=== PATIENT | male | born 1930 | race Caucasian/White ===

== ENCOUNTER → 2017-09-27 | Outpatient (CLI) | payer MEDICARE ==
[~2017-09-27] MED LIST: AMLO10TA82 PO; ASPI-266 PO; ASPI81TA16 PO; CITA10TA70 PO; CITA20TA12 PO; LISI20TA PO; MULT-1029 PO; NTR.4SL SL; PRAV10TA23 PO; PRAV20TA PO; TAMS0.4C2 PO; TERA1CAP3 PO
== END ==
LOC: CARD 10:08
PROVIDERS: ATTEND Internal Medicine Cardiovascular Disease
DX: I25.10 Atherosclerotic heart disease of native coronary artery without angina pectoris (principal); I10 Essential (primary) hypertension; R00.1 Bradycardia, unspecified; R01.2 Other cardiac sounds; E78.5 Hyperlipidemia, unspecified
CPT/HCPCS: 93306

== ENCOUNTER → 2018-05-08 | Outpatient (CLI) | payer MEDICARE ==
[~2018-05-08] VITALS: Ht 172.7 cm; Wt 76.7 kg
[~2018-05-08] MED LIST changes: +CATHETER FLUSH 10 ML SYR IV PRN; +REGADENOSON 0.4 MG/5 ML SYR (LEXISCAN) IV ONE
[2018-05-08 09:45] VITALS: BP 167/89
[2018-05-08 09:48] VITALS: BP 141/79
--- NOTE | 2018-05-08 21:21 | STRESS TEST ---
DATE OF SERVICE: 05/08/2018 RESTING AND POST REGADENOSON TECHNETIUM-99M TETROFOSMIN SPECT CT IMAGING Baseline images were carried out after injection of 10.47 mCi of technetium-99m Tetrofosmin. This was followed by 0.4 mg of regadenoson and 28.8 mCi of technetium-99m Tetrofosmin for stress imaging. The electrocardiogram shows sinus rhythm with frequent premature ventricular contractions throughout the study. The electrocardiogram did not change significantly with regadenoson infusion. He tolerated the procedure well. Review of images at rest and following stress does not indicate any significant perfusion defects consistent with significant myocardial ischemia or infarction. Gated images show normal global left ventricular systolic function with normal regional wall motion. Left ventricular ejection fraction is calculated to be 44%, but appears subjectively to be higher than that. Left ventricular end diastolic volume is 98 mL. TID is absent (1.08). CONCLUSIONS: 1. No evidence of any significant myocardial ischemia or infarction on this study. 2. Normal regional wall motion. 3. Normal global left ventricular systolic function with a calculated ejection fraction of 44%, but the ejection fraction subjectively appears to be higher than that. Job ID: [id number] DocumentID: [id number] Dictated Date: 05/08/2018 18:41:06 [employer] Date: 05/08/2018 21:20:23 Dictated By: NATIVIDAD RAMIREZ MD, MA, FACP, FACC,
== END ==
LOC: CARD 07:41
PROVIDERS: ATTEND Internal Medicine Cardiovascular Disease
DX: I25.10 Atherosclerotic heart disease of native coronary artery without angina pectoris (principal); E78.5 Hyperlipidemia, unspecified; I10 Essential (primary) hypertension
CPT/HCPCS: 78452; 93017

== ENCOUNTER 2019-11-06 09:22 | Inpatient (IN) | payer MEDICARE ==
[~2019-11-06] VITALS: Ht 175 cm; Wt 74.3 kg
[~2019-11-06 09:22] MED LIST changes: +AMLO10TA7 PO; +AMOX-358 PO; +ASPI-983 PO; -CATHETER FLUSH 10 ML SYR IV PRN; +CITA10TA7 PO; +LISI-552 PO; +PRAV10TA PO; -REGADENOSON 0.4 MG/5 ML SYR (LEXISCAN) IV ONE; +TMSL.4C PO
[2019-11-06] MEDS ORDERED: LACTATED RINGERS 1,000 ML IV ONE (09:28)
[2019-11-06] MEDS ORDERED: FAMOTIDINE 20MG/2ML IV (PEPCID) IVP ONE (09:30)
[2019-11-06] MEDS ORDERED: ONDANSETRON 4 MG/2 ML (SDV) Z0FRAN IVP ONE (09:30)
--- OUTSIDE RECORDS SUMMARY | 2019-11-06 09:38 | XMS REPORT ---
Author Author [facility] Organization Man[facility] Address [address] [address] Care Team Providers Care Operations Support Representative Name Role Phone CARLEEN ARCOS Unavailable BOB ANDREW Unavailable CARLEEN ARCOS Unavailable BOB ANDREW Unavailable LUCAS DE LA CRUZ Unavailable CRISTY SO Unavailable Unavailable JUDAH, CRISTY Unavailable Unavailable JUDAH, CRISTY Unavailable Unavailable Allergies Normalized Allergy Reported Date of Reaction(s) Care Provider Facility Allergy Type classification allergen Allergy Onset DA (1 source.) Unclassified No Known Drug 07-30-2014 - no inform ation NATIVIDAD RAMIREZ , Not Available Allergies [facility] (94971) no information Unclassified NO KNOWN DRUG UNKNOWN, NO CRISTY SO Not Available (7 sources.) ALLERGIES KNOWN DRUG (62599) ALLERGIES Medications Medication Ingredient Drug Dose Dates Status Sig Sig Care Class(es) (Normalized) (Original) Provid er no Lactated no 03-09-20 no no no no information Ringer's information 17 - informat information inf ormation name (1 source.) Solution 03-09-20 ion (no 17 phone) 10-27-2016 no no no no name - information inform informat (no 11-03-2016 ation ion phone) no Normal no 10-28-19 no no no no information saline information 17 - informat information infor mation name (1 source.) 11-12-19 ion (no 17 phone) NEGATED no no 1 g 10-28-19 no no no no no information information 17 - informat information infor mation name information 10-28-19 ion (no (1 source.) 17 phone) Problems Active Problems Problem Normalized Date of Normalized Normalized Provider Fac ility Classification Problem(s) Problem Problem Problem Sta tus Onset/Resoluti Duration on Anxiety Anxiety state, Chronic Active no name no info rmation disorders (2 unspecified sources.) NEGATED 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 sources.) [place] coronary artery without angina pectoris Translations: [ CORONARY ATHEROSCLEROSI S OF [place] CORON] Other nervous Carpal tunnel Chronic Active CRISTY JUDAH Not Available system syndrome (27004) disorders (3 sources.) Other nervous Carpal tunnel Chronic Active CRISTY JUDAH Not Available system syndrome, left (02409) disorders (2 upper limb sources.) Other nervous Carpal tunnel Chronic Active CRISTY JUDAH Not Available system syndrome, (28418) disorders (1 right upper source.) limb Skin and Cellulitis and Episodic Active no name no info rmation subcutaneous abscess of tissue hand, except infections (2 fingers and sources.) thumb Diverticulosis Diverticulosis Chronic Active no name no information and of colon diverticulitis (without (2 sources.) mention of hemorrhage) Other Encounter for Episodic Active no name no infor mation aftercare (2 follow-up sources.) examination after completed treatment for conditions other than malignant neoplasm NEGATED Essential Chronic Active no name no informati on no (primary) information hypertension (10 sources.) Translations: [ HYPERTENSION NOS] NEGATED Hyperlipidemia Chronic Active no name no info rmation no , unspecified information Translations: (10 sources.) [ HYPERLIPIDEMIA NEC/NOS, OTHER HYPERLIPIDEMIA , HYPERLIPIDEMIA , UNSPECIFIED] Genitourinary Microscopic Episodic Active no name no inf ormation symptoms and hematuria ill-defined conditions (2 sources.) Other Nonspecific Episodic Active no name no informa tion gastrointestin abnormal al disorders findings in (2 sources.) stool contents Open wounds of Open wound of Episodic Active no name no information extremities (2 hand except sources.) finger(s) alone, complicated Heart valve Other cardiac Episodic Active no name no inf ormation disorders (3 sounds sources.) Immunizations Other Episodic Active no name no inform ation and screening specified for infectious vaccinations disease (2 against sources.) streptococcus pneumoniae [pneumococcus] Other ear and Presbycusis, 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 (2 sources.) NEGATED Radiculopathy, Episodic Active no name no info rmation no lumbar region information (3 Translations: sources.) [ RADICULOPATHY, CERVICAL REGION, BRACHIAL NEURITIS OR RADICULITIS NOS] Past or Other Problems Problem Normalized Date of Normalized Normalized Provider Fac ility Classification Problem(s) Problem Problem Problem Sta tus Onset/Resoluti Duration on External Dog bite no information no information no name no information Injury - Natural / Environment (2 sources.) External Other external no information no information no name no information Injury - cause status Unspecified (2 sources.) Other Other Episodic Completed CRISTY SO Not Available 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 Immunizations The data below is from unstructured sources No Known Immunizations Results Test Name Value Interpretation Reference Range Date Time Fa cility (Normalized) (Normalized) (Medline Reference) No panel information on 2017-03-01 Albumin BCG dye 4.0 (no code) 03-01-2017 Not Availa ble [Mass/Vol] 14: (02162) ALP [Catalytic 100 U/L (no code) 44 - 147 U/L 03-01-2017 Not Available activity/Vol] 14: (52098) ALT [Catalytic 16 U/L (no code) 4 - 40 U/L 03-01-2017 Not Av ailable activity/Vol] 14: (22293) Anion gap 14 mmol/L (no code) 3 - 11 mmol/L 03-01-2017 Not Avai lable [Moles/Vol] 14: (92916) AST [Catalytic 16 U/L (no code) 10 - 34 U/L 03-01-2017 Not A vailable activity/Vol] 14: (48762) Bacteria LM Ql no information (no code) 03-01-2017 Not Avai lable (Urine sed) 14: (45598) Basophils (Bld) 0.1 10*3/uL (no code) 0 - 0.3 10*3/uL 03-01-2017 Not Available [#/Vol] 14: (08383) Basophils/100 0.90 % (no code) 0.5 - 1 % 03-01-2017 Not Avai lable WBC (Bld) 14: (84392) Bilirubin 1.0 mg/dL (no code) 0.1 - 1.2 mg/dL 03-01-2017 Not Av ailable [Mass/Vol] 14: (59223) Bilirubin N/A (A) 03-01-2017 Not Available Confirm Ql (U) 14: (61591) Bilirubin Ql (U) no information (no code) 03-01-2017 Not Av ailable 14: (58279) Calcium 9.1 mg/dL (no code) 8.5 - 10.2 mg/dL 03-01-2017 Not A vailable [Mass/Vol] 14: (33699) Chloride 110 mmol/L (no code) 95 - 106 mmol/L 03-01-2017 Not A vailable [Moles/Vol] 14: (65431) Clarity (U) Clear (no code) 03-01-2017 Not Available 14: (03794) Color (U) Yellow (no code) 03-01-2017 Not Available 14: (57415) Creatinine 0.99 mg/dL (no code) 03-01-2017 Not Available [Mass/Vol] 14: (16351) Eosinophils 0.1 10*3/uL (no code) 0.05 - 0.5 03-01-2017 Not [place] ilable (Bld) [#/Vol] 10*3/uL 14: (82371) Eosinophils/100 1.4 % (no code) 1 - 4 % 03-01-2017 Not Av ailable WBC (Bld) 14: (01194) Epithelial 0-5/HPF (A) 03-01-2017 Not Available cells.squamous 14: (04065) LM.HPF (Urine sed) [#/Area] Erythrocyte 14.6 % (no code) 11.6 - 14.6 % 03-01-2017 Not Av ailable distribution 14: (97543) width (RBC) [Ratio] FINAL CULTURE no information (no code) 03-01-2017 Not Avail able RESULTS 14: (07270) GFR/1.73 sq 72 (no code) 90 - 120 03-01-2017 Not Availa ble M.predicted MDRD mL/min/{1.73_m2} mL/min/{1.73_m2} 14:0400 (80014) (S/P/Bld) [Vol rate/Area] Globulin (S) 2.8 g/dL (no code) 2 - 3.5 g/dL 03-01-2017 Not Av ailable [Mass/Vol] 14:020400 (56656) Glucose 90 mg/dL (no code) 60 - 125 mg/dL 03-01-2017 Not Mahog[place] ilable [Mass/Vol] 14:0400 (06834) Glucose Test no information (no code) 03-01-2017 Not Availa ble strip (U) 14:0400 (49686) [Mass/Vol] HCO3 (P) 24 (no code) 03-01-2017 Not Available [Moles/Vol] 14:0400 (77953) Hematocrit (Bld) 42.8 % (no code) 36.1 - 50.3 % 03-01-2017 N ot Available [Volume 14:0 (96009) fraction] Hemoglobin (Bld) 13.6 g/dL (L) 12.1 - 17.2 g/dL 03-01-2017 Not Available [Mass/Vol] 14:020400 (88485) Hemoglobin Ql 1+ (A) 03-01-2017 Not Availabl e (U) 14:0400 (31219) Ketones (U) no information (no code) 03-01-2017 Not Availab le [Mass/Vol] 14:0400 (05041) Leukocyte no information (no code) 03-01-2017 Not Availab le esterase Test 14:0400 (29881) strip Ql (U) Lymphocytes 2.24 10*3/uL (no code) 0.9 - 2.9 03-01-2017 Not [place]og[place] ilable (Bld) [#/Vol] 10*3/uL 14:020400 (85885) Lymphocytes/100 29.2 % (no code) 20 - 40 % 03-01-2017 Not Av ailable WBC (Bld) 14:020400 (01213) MCH (RBC) 27.1 pg (no code) 27 - 31 pg 03-01-2017 Not Availab le [Entitic mass] 14:0400 (28456) MCHC (RBC) 31.8 g/dL (L) 32 - 36 g/dL 03-01-2017 Not Avai lable [Mass/Vol] 14:0400 (57802) MCV (RBC) 85.4 fL (no code) 80 - 100 fL 03-01-2017 Not Availa ble [Entitic vol] 14:0400 (83398) MEDIA PLATED Setup at 13:08 (no code) 03-01-2017 Not Availa ble 03/01/2017 14:0400 (69728) Monocytes (Bld) 0.7 10*3/uL (no code) 0.3 - 0.9 03-01-2017 Not Available [#/Vol] 10*3/uL 14:0400 (73133) Monocytes/100 8.6 % (no code) 2 - 8 % 03-01-2017 Not Avai lable WBC (Bld) 14:0 (51167) Mucus Ql (Urine 2+ (A) 03-01-2017 Not Availa ble sed) 14:0400 (00856) Neutrophils 4.60 10*3/uL (no code) 1.7 - 7 10*3/uL 03-01-2017 N ot Available (Bld) [#/Vol] 14:0400 (41749) Neutrophils/100 59.9 % (no code) 40 - 60 % 03-01-2017 Not Av ailable WBC (Bld) 14:0400 (24238) Nitrite Ql (U) no information (no code) 03-01-2017 Not Avai lable 14:0400 (36084) Osmolality Calc 299 (H) 03-01-2017 Not Availa ble [Osmolality] 14:0400 (09610) pH (U) 5.5 [pH] (no code) 4.6 - 8 [pH] 03-01-2017 Not Avail able 14:020400 (51514) Platelet mean 11.1 fL (H) 7.2 - 11.7 fL 03-01-2017 Not Available volume (Bld) 14:0400 (36621) [Entitic vol] Platelets (Bld) 137 10*3/uL (L) 150 - 450 03-01-2017 Not Available [#/Vol] 10*3/uL 14:0 (78430) Potassium 4.2 mmol/L (no code) 3.7 - 5.2 mmol/L 03-01-2017 Not Available [Moles/Vol] 14:0400 (14986) Protein (U) no information (no code) 0 - 20 mg/dL 03-01-2017 No t Available [Mass/Vol] 14: (40744) Protein 6.8 g/dL (no code) 6.4 - 8.3 g/dL 03-01-2017 Not [place]og[place] ilable [Mass/Vol] 14:0 (16026) RBC (Bld) 5.01 10*6/uL (no code) 4.2 - 6.1 03-01-2017 Not Avail able [#/Vol] 10*6/uL 14: (24413) RBC LM.HPF Rare/HPF (A) 03-01-2017 Not Available (Urine sed) : (10610) [#/Area] Sodium 144 mmol/L (no code) 135 - 145 mmol/L 03-01-2017 Not Available [Moles/Vol] 14:0 (38263) Specific gravity >=1.030 (A) 03-01-2017 Not Avail able (U) [Rel 14: (82221) density] Urea nitrogen 19 mg/dL (no code) 7 - 20 mg/dL 03-01-2017 Not A vailable [Mass/Vol] :0 (55082) Urine Volume Urine Volume (no code) 03-01-2017 Not Availabl e Sufficient : (64345) (10mL) Urobilinogen Qn 0.2 (A) 03-01-2017 Not Availa ble (U) {Alondra'U}/dL 14:0 (20392) WBC (Bld) 7.68 10*3/uL (no code) 3.5 - 10.5 03-01-2017 Not Avai lable [#/Vol] 10*3/uL 14:02-0400 (15871) WBC LM.HPF Nothing Seen on (no code) 03-01-2017 Not Availa ble (Urine sed) Microscopic 14:0400 (10652) [#/Area] Yeast.budding Ql No Yeast present (no code) 03-01-2017 Not Available (Urine sed) 14:0400 (37316) no information Urine Saved if (A) 03-01-2017 Not Avai lable Culture Needed 14:0400 (67103) (48hrs from time of collection) No panel information on 2016-10-24 Bacteria LM Ql no information (no code) 10-24-2016 Not Avai lable (Urine sed) 11:0400 (06257) Bilirubin N/A (A) 10-24-2016 Not Available Confirm Ql (U) 11:0 (78569) Bilirubin Ql (U) no information (no code) 10-24-2016 Not Av ailable 11:0400 (89438) Clarity (U) Clear (no code) 10-24-2016 Not Available 11:0400 (65693) Color (U) Yellow (no code) 10-24-2016 Not Available 11:0400 (57079) Electrocardiogra Complete (no code) 10-24-2016 Not Avail able ms recorded 12: (69599) Epithelial Rare (A) 10-24-2016 Not Available cells.squamous 11:0400 (35433) LM.HPF (Urine sed) [#/Area] FINAL CULTURE no information (no code) 10-24-2016 Not Avail able RESULTS 12: (09839) Glucose Test no information (no code) 10-24-2016 Not Availa ble strip (U) 11:0400 (10635) [Mass/Vol] Hematocrit Auto 42.5 % (no code) 36.1 - 50.3 % 10-24-2016 No t Available Volume Fraction 12:25-0400 (03233) (Bld) Hemoglobin mass 13.8 g/dL (L) 12.1 - 17.2 g/dL 10-24-2016 Not Available conc (Bld) 12:0400 (49271) Hemoglobin Ql 1+ (A) 10-24-2016 Not Availabl e (U) 11:25-0400 (24027) Ketones (U) no information (no code) 10-24-2016 Not Availab le [Mass/Vol] 11:25-0400 (63737) Leukocyte no information (no code) 10-24-2016 Not Availab le esterase Test 11:25-0400 (44734) strip Ql (U) MEDIA PLATED Setup at 14:27 (no code) 10-24-2016 Not Availa ble on 10/24/2016 12:25-0400 (10782) Nitrite Ql (U) no information (no code) 10-24-2016 Not Avai lable 11:25-0400 (10992) pH (U) 5.5 [pH] (no code) 4.6 - 8 [pH] 10-24-2016 Not Avail able 11:25-0400 (30374) Protein (U) no information (no code) 0 - 20 mg/dL 10-24-2016 No t Available [Mass/Vol] 11:25-0400 (55423) RBC LM.HPF Rare/HPF (A) 10-24-2016 Not Available (Urine sed) 11:25-0400 (38891) [#/Area] Specific gravity 1.025 (no code) 10-24-2016 Not Avail able (U) [Rel 11:25-0400 (59276) density] Urine Volume Urine Volume (no code) 10-24-2016 Not Availabl e Sufficient 11:25-0400 (16371) (10mL) Urobilinogen Qn 0.2 (A) 10-24-2016 Not Availa ble (U) {Alondra'U}/dL 11:25-0400 (87531) WBC LM.HPF no information (no code) 0 - 5 /[HPF] 10-24-2016 Not Available (Urine sed) 11:25-0400 (45754) [#/Area] Yeast.budding Ql No Yeast present (no code) 10-24-2016 Not Available (Urine sed) 11:25-0400 (52724) no information Urine Saved if (A) 10-24-2016 Not Avai lable Culture Needed 11:25-0400 (56580) (48hrs from time of collection) Vital Signs The data below is from unstructured sources Vital Response Date/Time Temperature Source Tympanic 07/27/2015 6:00am Pulse Rate (adult) 63 bpm (60 - 90) 07/27/2015 6:00am Respiratory Rate 16 bpm (12 - 24) 07/27/2015 6:00am O2 Sat by Pulse Oximetry 94 % (88 - 100) 07/27/2015 6:00am Blood Pressure 105/62 mm Hg 07/27/2015 6:00am Blood Pressure Mean 76 mm Hg 07/27/2015 6:00am Pain Pain Intensity 0 2015 8:30am Height (Centimeters) 172.7 cm 07/24/2015 12:33pm Weight (Calculated Grams) 18915.000 gm 07/24/2015 12:33pm Weight (Kilograms) 77.2 kg 07/24/2015 12:33pm Height 5 ft 7.99 in Weight 170 lb Body Mass Index 25.0 kg/m^2 Vital Response Date/Time Temperature Source Tympanic 07/27/2015 10:40am Pulse Rate (adult) 63 bpm (60 - 90) 07/27/2015 10:40am Respiratory Rate 16 bpm (12 - 24) 07/27/2015 10:40am O2 Sat by Pulse Oximetry 94 % (88 - 100) 07/27/2015 10:40am Blood Pressure 105/62 mm Hg 07/27/2015 10:40am Blood Pressure Mean 76 mm Hg 07/27/2015 6:00am Pain Pain Intensity 0 2015 8:30am Height (Centimeters) 172.7 cm 07/24/2015 12:33pm Weight (Calculated Grams) 28929.000 gm 07/24/2015 12:33pm Weight (Kilograms) 77.2 kg 07/24/2015 12:33pm Height 5 ft 7.99 in Weight 170 lb Body Mass Index 25.0 kg/m^2 Vital Response Date/Time Temperature (Fahrenheit) 96.9 degree s F (97.6 - 99.5) Temperature (Calculated Celsius) 36. 01899 degrees C (36.4 - 37.5) Temperature Source Tympanic Pulse Rate (adult) 54 bpm (60 - 90) Respiratory Rate 18 bpm (12 - 24) O2 Sat by Pulse Oximetry 94 % (88 - 100) Blood Pressure 113/66 mm Hg Pain Pain Intensity 0 Height (Feet) 5 feet Height (Inches) 9.00 inches Height (Calculated Centimeters) 175. 959456 cm Weight (Pounds) 163 pounds Weight (Ounces) 3.2 oz Weight (Calculated Grams) 39801.557 gm Weight (Calculated Kilograms) 73.935 557 kilograms Calculated BMI 24.07 Interventions No Information Plan of Treatment The data below is from unstructured sources Discharge Date 07/27/15 10:40am Disposition 01 HOME, SELF-CARE Instructions/Education Provided Panc reatitis (DC) Prescriptions See Medication Section Referrals DR. ARCOS (Unspecified) - Reason(s) for Referral: FOLLOW UP WITH DR. ARCOS Monday08/03/15 AT 11:00 AM [phone] Care Plan and Goals See Discharge In structions Section Discharge Date 07/31/14 1:45pm Disposition 01 HOME, SELF-CARE Instructions/Education Provided Ches t Pain (DC) Forms Provided PDI Medical Prescriptions See Medications Sectio n Referrals NATIVIDAD RAMIREZ MD FACP [facility] (Unspecified) 08/14/14 Address: [address] [place] [address] [address] [place], [place] [address] Reason(s) for Referral: August at 3:20 PM Call the office if you have questions/concerns or need to reschedule. CARLEEN ARCOS DO (Unspecified) 09/04/14 Address: [facility] [place], [place] [address] Reason(s) for Referral: August at 10:30 AM Call the office if you have any questions/concerns or need to reschedule. Activity Details Follow Up 4 Weeks Reason:BH F/U Activity Details Follow Up 4 Weeks Reason:BH F/U Goals No Information Social History No Information Functional Status The data below is from unstructured sources Query Response Date Feliciano rded Patient Orientation Person Place Time Situation Normal For Age July 27, 2015 10:46am Comprehension Ability Understands Co ncepts July 27, 2015 8:31am Query Response Date Feliciano rded Patient Orientation Person Place Time Situation July 31, 2014 2:52pm Comprehension Ability Understands Co ncepts July 31, 2014 8:00am Mental Status No Information Encounters Encounter Normalized Encounter Encounter Diagnosis Care Provi justin Organization Date Type NEGATED Patient encounter no information no name (no phone) no organization name 05-08-2018 (no phone) 04-13-2018 Patient encounter no information no name (no phone) no organization name - (no phone) 04-14-2018 09-27-2017 Patient encounter no information no name (no phone) no organization name (no phone) 09-07-2015 Patient encounter no information no name (no phone) no organization name (no phone) 05-22-2015 Patient encounter no information no name (no phone) no organization name (no phone) 12-02-2014 Patient encounter no information no name (no phone) no organization name - (no phone) 12-05-2014 02-01-2013 Patient encounter no information no name (no phone) no organization name - (no phone) 02-01-2013 01-30-2013 Patient encounter no information no name (no phone) no organization name (no phone) 06-28-2019 Patient encounter no information no name (no phone) no organization name - procedure (no phone) 06-28-2019 03-09-2017 Patient encounter no information no name (no phone) no organization name procedure (no phone) 03-01-2017 Patient encounter no information no name (no phone) no organization name - procedure (no phone) 03-02-2017 10-27-2016 Patient encounter no information no name (no phone) no organization name - procedure (no phone) 10-27-2016 05-05-2016 Patient encounter no information no name (no phone) no organization name - procedure (no phone) 05-05-2016 no information Pre-operative no name (no phone) no organiza tion name examination, (no phone) unspecified Medical Equipment No Information Payers Normalized Payer Value Medicare no information Advance Directives Directive Response Recor ded Date/Time Advance Directives Yes 0 07/24/15 12:27pm Health Care Power of Body Press Operator No 07/24/15 12:27pm Organ Donor Yes 07/24/15 12:27pm Resuscitation Status Full Code 07/24/15 12:27pm Directive Response Recor ded Date Advance Directives Y 7:37am Health Care Power of Body Press Operator Y 02/01/13 7:37am Organ Donor N 02/01/13 7 :37am Directive Response Recor ded Date/Time Advance Directives Yes 0 07/30/14 6:31pm Health Care Power of Body Press Operator No 07/30/14 6:31pm Organ Donor Yes 07/30/14 6:31pm Directive Response Recor ded Date/Time Advance Directives Yes 0 07/30/14 6:31pm Health Care Power of Body Press Operator No 07/30/14 6:31pm Organ Donor Yes 07/30/14 6:31pm Resuscitation Status Full Code 07/30/14 6:31pm Discharge Instructions Patient Instructions Physician Instructions New, Converted or Re-Newed RX: Other Plan of Care/Instructions/FU: Low-fat diet small feedings. Increase as tolerated. Activity as Tolerated: Yes Goal: Return to previous status Discharge Diet: Eat Small Frequent Meals, Avoid Fatty Foods Return to The Hospital For: Recurrence of pain Plan of Care/Instructions/FU: Take medications as previously and listed on the discharge sequence Gradually increase activity to return to previous level Activity as Tolerated: Yes Goal: Return to previous status Discharge Diet: Eat Small Frequent Meals, Avoid Fatty Foods Return to The Hospital For: Recurrence of pain Appointment for Dr. Arcos in 1-2 weeks. Care Plan Patient Instructions:: Take medications as previously and listed on the discharge sequenceGradually increase activity to return to previous level Goal:: Return to previous status Patient Instructions Physician Instructions New, Converted or Re-Newed RX: Other Plan of Care/Instructions/FU: Low-fat diet small feedings. Increase as tolerated. Activity as Tolerated: Yes Goal: Return to previous status Discharge Diet: Eat Small Frequent Meals, Avoid Fatty Foods Return to The Hospital For: Recurrence of pain Plan of Care/Instructions/FU: Take medications as previously and listed on the discharge sequence Gradually increase activity to return to previous level Activity as Tolerated: Yes Goal: Return to previous status Discharge Diet: Eat Small Frequent Meals, Avoid Fatty Foods Return to The Hospital For: Recurrence of pain Appointment for Dr. Arcos in 1-2 weeks. Care Plan Patient Instructions:: Take medications as previously and listed on the discharge sequenceGradually increase activity to return to previous level Goal:: Return to previous status No hospital discharge instructions.No hospital discharge instructions. Additional Source Comments This clinical document has been generated using [employer] software that has been certified by the Office of the National Coordinator for Health Information Technology (ONC 15.99.04.3023.Diam.31.00.0.248003) and the National Committee for Technical Solutions Director (NCQA, as an eMeasure certified technology). FOR RECORDS PERTAINING TO PATIENTS WHO ARE OR HAVE BEEN ENROLLED IN A CHEMICAL D EPENDENCY/SUBSTANCE ABUSE PROGRAM, SOME INFORMATION MAY BE OMITTED. This clinica l summary was aggregated from multiple sources. Caution should be exercised in using it in the provision of clinical care. This summary normalizes information from multiple sources, and as a consequence, information in this document may ma terially change the coding, format and clinical context of patient data. In lucinda tion, data may be omitted in some cases. CLINICAL DECISIONS SHOULD BE BASED ON T HE PRIMARY CLINICAL RECORDS. [facility]. provides no warranty or guara ntee of the accuracy or completeness of information in this document.The followi information is based on time limited clinical information
--- OUTSIDE RECORDS SUMMARY | 2019-11-06 09:39 | XMS REPORT | Continuity of Care Document ---
Author Organization Unknown Address Unknown Phone Unavailable Allergies Active Description Code Type Severity Reaction Onset Reported/Identified Relationship to Patient Clinical Status Yes No Known Drug Allergies [id number] Drug Allergy Unknown N/A 07/30/2014 Medications There is no data. Problems Date Dx Coded Attending Type Code Diagnosis Diagnosed By 03/24/2010 Ot 401.9 03/24/2010 Ot 786.59 03/24/2010 Ot V58.66 03/24/2010 Ot V58.69 04/13/2010 Ot 401.9 04/13/2010 Ot 414.01 04/13/2010 Ot 427.69 04/13/2010 Ot 433.10 04/13/2010 Ot 786.50 04/13/2010 Ot V10.46 04/13/2010 Ot V58.66 04/13/2010 Ot V58.69 11/23/2010 Ot 211.3 11/23/2010 Ot 562.10 11/23/2010 Ot 600.00 11/23/2010 Ot V76.51 02/01/2013 BOB ANDREW MD Ot 562. 10 DIVERTICULOSIS COLON (W/O MENT OF HEMORR 02/01/2013 BOB ANDREW MD Ot 792. 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 07/31/2014 CARLEEN ROSADO DO Ot 272.4 07/31/2014 CARLEEN ROSADO DO Ot 300.00 07/31/2014 CARLEEN ROSADO DO Ot 401.9 07/31/2014 CARLEEN ROSADO DO Ot 414.01 07/31/2014 CARLEEN ROSADO DO Ot 427.69 07/31/2014 CARLEEN ROSADO DO Ot 427.89 07/31/2014 CARLEEN ROSADO DO Ot 599.72 07/31/2014 CARLEEN ROSADO DO Ot 786.50 07/31/2014 CARLEEN ROSADO DO Ot V03.82 07/31/2014 Ot 401.9 07/31/2014 Ot 784.0 07/31/2014 Ot 272.4 07/31/2014 Ot 414.01 07/31/2014 Ot 272.4 07/31/2014 Ot V58.69 07/31/2014 Ot 272.4 07/31/2014 Ot 401.9 07/31/2014 Ot V58.69 07/31/2014 Ot 433.10 07/31/2014 Ot 185 07/31/2014 BOB ANDREW MD Ot V72. 84 12/05/2014 HUNTER DEAL MD Ot 682 .4 CELLULITIS OF HAND 12/05/2014 HUNTER DEAL MD Ot 882 .1 OPN WOUND HAND-COMPLICAT 12/05/2014 HUNTER DEAL MD Ot E000.8 OTHER EXTERNAL CAUSE STATUS 12/05/2014 HUNTER DEAL MD Ot E906.0 DOG BITE 06/11/2015 ALONZO SIERRA CARLEEN Minesh Ot M54.16 06/17/2015 ALONZO SIERRA CARLEEN Minesh Ot M54.16 07/24/2015 Ot 272.4 07/24/2015 Ot 414.01 07/24/2015 Ot 272.4 07/24/2015 Ot V58.69 07/24/2015 Ot 272.4 07/24/2015 Ot 401.9 07/24/2015 Ot V58.69 07/24/2015 Ot 433.10 07/24/2015 Ot 185 07/24/2015 BOB ANDREW MD Ot V72. 84 07/24/2015 ALONZO SIERRA CARLEEN Minesh Ot M54.16 07/27/2015 INGRID GIFFORD DO Ot E78.5 HYPERLIPIDEMIA, UNSPECIFIED 07/27/2015 INGRID GIFFORD DO Ot F32.9 MAJOR DEPRESSIVE DISORDER, SINGLE EPISOD 07/27/2015 INGRID GIFFORD DO Ot H91.13 PRESBYCUSIS, BILATERAL 07/27/2015 BALTA SIERRA INGRID Ot I10 ESSENTIAL (PRIMARY) HYPERTENSION 07/27/2015 INGRID GIFFORD DO Ot K85.9 ACUTE PANCREATITIS, UNSPECIFIED 09/07/2015 Ot 272.4 09/07/2015 Ot 414.01 09/07/2015 Ot 272.4 09/07/2015 Ot V58.69 09/07/2015 Ot 272.4 09/07/2015 Ot 401.9 09/07/2015 Ot V58.69 09/07/2015 Ot 433.10 09/07/2015 Ot 185 09/07/2015 KAMRAN BARRON, BOB Moffett Ot V72. 84 09/07/2015 ROSADOCARLEEN FERNANDO DO Ot M54.16 09/29/2015 ROSADOCARLEEN FERNANDO DO Ot K85.9 09/29/2015 ROSADO DOCARLEEN Ot Z09 10/07/2015 ROSADOCARLEEN SALINAS DO Ot K85.9 10/07/2015 ROSADO DO, CARLEEN J Ot Z09 09/25/2017 KAMRAN BARRON, BOB Moffett Ot V72. 84 EXAM PRE-OPERATIVE NOS 09/25/2017 CARLEEN ROSADO DO Ot M54.16 RADICULOPATHY, LUMBAR REGION 09/25/2017 CARLEEN ROSADO DO Ot K85.9 ACUTE PANCREATITIS, UNSPECIFIED 09/25/2017 CARLEEN ROSADO DO J Ot Z09 ENCNTR FOR F/U EXAM AFT TRTMT FOR COND O 09/27/2017 BOB ANDREW MD Ot V72. 84 EXAM PRE-OPERATIVE NOS 09/27/2017 ROSADO DO, CARLEEN Edge Ot M54.16 RADICULOPATHY, LUMBAR REGION 09/27/2017 ALONZO SIERRA, CARLEEN Edge Ot K85.9 ACUTE PANCREATITIS, UNSPECIFIED 09/27/2017 CARLEEN ROSADO DO Ot Z09 ENCNTR FOR F/U EXAM AFT TRTMT FOR COND O 09/28/2017 ASHLEY BARRON FACC, NATIVIDAD FACP CCDS Ot E78.5 HYPERLIPIDEMIA, UNSPECIFIED 09/28/2017 ASHLEY BARRON FACC, ALI FACP CCDS Ot I10 ESSENTIAL (PRIMARY) HYPERTENSION 09/28/2017 ASHLEY BARRON FACC, ALI FACP CCDS Ot I25.10 ATHSCL HEART DISEASE OF [place] CORONARY 09/28/2017 ASHLEY BARRON FACC, ALI FACP CCDS Ot R00.1 BRADYCARDIA, UNSPECIFIED 09/28/2017 ASHLEY BARRON FACC, ALI FACP CCDS Ot R01.2 OTHER CARDIAC SOUNDS 10/26/2017 ASHLEY BARRON FACC, ALI FACP CCDS Ot E78.5 HYPERLIPIDEMIA, UNSPECIFIED 10/26/2017 ASHLEY BARRON FACC, ALI FACP CCDS Ot I10 ESSENTIAL (PRIMARY) HYPERTENSION 10/26/2017 ASHLEY BARRON FACC, ALI FACP CCDS Ot I25.10 ATHSCL HEART DISEASE OF [place] CORONARY 10/26/2017 ASHLEY BARRON FACC, ALI FACP CCDS Ot R00.1 BRADYCARDIA, UNSPECIFIED 10/26/2017 ASHLEY BARRON FACC, ALI FACP CCDS Ot R01.2 OTHER CARDIAC SOUNDS 05/08/2018 KAMRAN BARRON, BOB Moffett Ot V72. 84 EXAM PRE-OPERATIVE NOS 05/08/2018 CARLEEN ROSADO DO Ot M54.16 RADICULOPATHY, LUMBAR REGION 05/08/2018 CARLEEN ROSADO DO Ot K85.9 ACUTE PANCREATITIS, UNSPECIFIED 05/08/2018 CARLEEN ROSADO DO Ot Z09 ENCNTR FOR F/U EXAM AFT TRTMT FOR COND O 05/08/2018 ASHLEY BARRON FACC, NATIVIDAD FACP CCDS Ot E78.5 HYPERLIPIDEMIA, UNSPECIFIED 05/08/2018 ASHLEY BARRON FACC, ALI FACP CCDS Ot I10 ESSENTIAL (PRIMARY) HYPERTENSION 05/08/2018 ASHLEY BARRON FACC, ALI FACP CCDS Ot I25.10 ATHSCL HEART DISEASE OF [place] CORONARY 05/08/2018 ASHLEY BARRON FACC, ALI FACP CCDS Ot R00.1 BRADYCARDIA, UNSPECIFIED 05/08/2018 ASHLEY BARRON FACC, ALI FACP CCDS Ot R01.2 OTHER CARDIAC SOUNDS 05/09/2018 ASHLEY BARRON FACC, ALI FACP CCDS Ot E78.49 OTHER HYPERLIPIDEMIA 05/09/2018 ASHLEY BARRON FACC, ALI FACP CCDS Ot I10 ESSENTIAL (PRIMARY) HYPERTENSION 05/09/2018 ASHLEY BARRON FACC, ALI FACP CCDS Ot I25.10 ATHSCL HEART DISEASE OF [place] CORONARY 05/09/2018 ASHLEY BARRON FACC, ALI FACP CCDS Ot E78.5 HYPERLIPIDEMIA, UNSPECIFIED 05/09/2018 ASHLEY BARRON FACC, ALI FACP CCDS Ot I10 ESSENTIAL (PRIMARY) HYPERTENSION 05/09/2018 ASHLEY BARRON FACC, ALI FACP CCDS Ot I25.10 ATHSCL HEART DISEASE OF [place] CORONARY 05/30/2018 ASHLEY BARRON FAC, ALI FACP CCDS Ot E78.5 HYPERLIPIDEMIA, UNSPECIFIED 05/30/2018 ASHLEY BARRON FAC, ALI FACP CCDS Ot I10 ESSENTIAL (PRIMARY) HYPERTENSION 05/30/2018 ASHLEY BARRON FAC, ALI FACP CCDS Ot I25.10 ATHSCL HEART DISEASE OF [place] CORONARY 10/28/2019 MARCOS KINNEY MD Ot D69. 6 THROMBOCYTOPENIA, UNSPECIFIED 10/28/2019 MARCOS KINNEY MD Ot D72.829 ELEVATED WHITE BLOOD CELL COUNT, UNSPECI 10/28/2019 MARCOS KINNEY MD Ot E78. 00 PURE HYPERCHOLESTEROLEMIA, UNSPECIFIED 10/28/2019 MARCOS KINNEY MD Ot I10 ESSENTIAL (PRIMARY) HYPERTENSION 10/28/2019 MARCOS KINNEY MD Ot J98. 11 ATELECTASIS 10/28/2019 MARCOS KINNEY MD Ot K85. 30 DRUG INDUCED ACUTE PANCREATITIS WITHOUT 10/28/2019 MARCOS KINNEY MD Ot K86. 1 OTHER CHRONIC PANCREATITIS 10/28/2019 MARCOS KINNEY MD Ot M19. 91 PRIMARY OSTEOARTHRITIS, UNSPECIFIED SITE 10/28/2019 MARCOS KINNEY MD Ot N40. 0 BENIGN PROSTATIC HYPERPLASIA WITHOUT LOW 10/28/2019 MARCOS KINNEY MD Ot N42. 9 DISORDER OF PROSTATE, UNSPECIFIED 10/28/2019 MARCOS KINNEY MD Ot R73. 9 HYPERGLYCEMIA, UNSPECIFIED 10/28/2019 MARCOS KINNEY MD Ot R91. 8 OTHER NONSPECIFIC ABNORMAL FINDING OF [place] 10/28/2019 MARCOS KINNEY MD Ot Z90. 49 ACQUIRED ABSENCE OF OTHER SPECIFIED PART 10/28/2019 MARCOS KINNEY MD Ot Z97. 4 PRESENCE OF EXTERNAL HEARING-AID 10/28/2019 MARCOS KINNEY MD Ot D69. 6 THROMBOCYTOPENIA, UNSPECIFIED 10/28/2019 MARCOS KINNEY MD Ot D72.829 ELEVATED WHITE BLOOD CELL COUNT, UNSPECI 10/28/2019 MARCOS KINNEY MD Ot E78. 00 PURE HYPERCHOLESTEROLEMIA, UNSPECIFIED 10/28/2019 MARCOS KINNEY MD Ot I10 ESSENTIAL (PRIMARY) HYPERTENSION 10/28/2019 MARCOS KINNEY MD Ot J98. 11 ATELECTASIS 10/28/2019 MARCOS KINNEY MD Ot K85. 30 DRUG INDUCED ACUTE PANCREATITIS WITHOUT 10/28/2019 MARCOS KINNEY MD Ot K86. 1 OTHER CHRONIC PANCREATITIS 10/28/2019 MARCOS KINNEY MD Ot M19. 91 PRIMARY OSTEOARTHRITIS, UNSPECIFIED SITE 10/28/2019 MARCOS KINNEY MD Ot N40. 0 BENIGN PROSTATIC HYPERPLASIA WITHOUT LOW 10/28/2019 MARCOS KINNEY MD Ot N42. 9 DISORDER OF PROSTATE, UNSPECIFIED 10/28/2019 MARCOS KINNEY MD Ot R73. 9 HYPERGLYCEMIA, UNSPECIFIED 10/28/2019 MARCOS KINNEY MD Ot R91. 8 OTHER NONSPECIFIC ABNORMAL FINDING OF [place] 10/28/2019 MARCOS KINNEY MD Ot Z90. 49 ACQUIRED ABSENCE OF OTHER SPECIFIED PART 10/28/2019 MARCOS KINNEY MD Ot Z97. 4 PRESENCE OF EXTERNAL HEARING-AID 10/29/2019 MARCOS KINNEY MD Ot D69. 6 THROMBOCYTOPENIA, UNSPECIFIED 10/29/2019 MARCOS KINNEY MD Ot D72.829 ELEVATED WHITE BLOOD CELL COUNT, UNSPECI 10/29/2019 MARCOS KINNEY MD Ot E78. 00 PURE HYPERCHOLESTEROLEMIA, UNSPECIFIED 10/29/2019 MARCOS KINNEY MD Ot I10 ESSENTIAL (PRIMARY) HYPERTENSION 10/29/2019 MARCOS KINNEY MD Ot J98. 11 ATELECTASIS 10/29/2019 MARCOS KINNEY MD Ot K85. 30 DRUG INDUCED ACUTE PANCREATITIS WITHOUT 10/29/2019 MARCOS KINNEY MD Ot K86. 1 OTHER CHRONIC PANCREATITIS 10/29/2019 MARCOS KINNEY MD Ot M19. 91 PRIMARY OSTEOARTHRITIS, UNSPECIFIED SITE 10/29/2019 MARCOS KINNEY MD Ot N40. 0 BENIGN PROSTATIC HYPERPLASIA WITHOUT LOW 10/29/2019 MARCOS KINNEY MD Ot N42. 9 DISORDER OF PROSTATE, UNSPECIFIED 10/29/2019 MARCOS KINNEY MD Ot R73. 9 HYPERGLYCEMIA, UNSPECIFIED 10/29/2019 MARCOS KINNEY MD Ot R91. 8 OTHER NONSPECIFIC ABNORMAL FINDING OF [place] 10/29/2019 MARCOS KINNEY MD Ot Z90. 49 ACQUIRED ABSENCE OF OTHER SPECIFIED PART 10/29/2019 MARCOS KINNEY MD Ot Z97. 4 PRESENCE OF EXTERNAL HEARING-AID 10/30/2019 MARCOS KINNEY MD Ot D69. 6 THROMBOCYTOPENIA, UNSPECIFIED 10/30/2019 MARCOS KINNEY MD Ot D72.829 ELEVATED WHITE BLOOD CELL COUNT, UNSPECI 10/30/2019 MARCOS KINNEY MD Ot E78. 00 PURE HYPERCHOLESTEROLEMIA, UNSPECIFIED 10/30/2019 MARCOS KINNEY MD Ot I10 ESSENTIAL (PRIMARY) HYPERTENSION 10/30/2019 MARCOS KINNEY MD Ot J98. 11 ATELECTASIS 10/30/2019 MARCOS KINNEY MD Ot K85. 30 DRUG INDUCED ACUTE PANCREATITIS WITHOUT 10/30/2019 MARCOS KINNEY MD Ot K86. 1 OTHER CHRONIC PANCREATITIS 10/30/2019 MARCOS KINNEY MD Ot M19. 91 PRIMARY OSTEOARTHRITIS, UNSPECIFIED SITE 10/30/2019 MARCOS KINNEY MD Ot N40. 0 BENIGN PROSTATIC HYPERPLASIA WITHOUT LOW 10/30/2019 MARCOS KINNEY MD Ot N42. 9 DISORDER OF PROSTATE, UNSPECIFIED 10/30/2019 MARCOS KINNEY MD Ot R73. 9 HYPERGLYCEMIA, UNSPECIFIED 10/30/2019 MARCOS KINNEY MD Ot R91. 8 OTHER NONSPECIFIC ABNORMAL FINDING OF [place] 10/30/2019 MARCOS KINNEY MD Ot Z90. 49 ACQUIRED ABSENCE OF OTHER SPECIFIED PART 10/30/2019 MARCOS KINNEY MD Ot Z97. 4 PRESENCE OF EXTERNAL HEARING-AID 10/30/2019 MARCOS KINNEY MD Ot D69. 6 THROMBOCYTOPENIA, UNSPECIFIED 10/30/2019 MARCOS KINNEY MD Ot D72.829 ELEVATED WHITE BLOOD CELL COUNT, UNSPECI 10/30/2019 MARCOS KINNEY MD Ot E78. 5 HYPERLIPIDEMIA, UNSPECIFIED 10/30/2019 MARCOS KINNEY MD Ot I10 ESSENTIAL (PRIMARY) HYPERTENSION 10/30/2019 MARCOS KINNEY MD, Ot J18. 9 PNEUMONIA, UNSPECIFIED ORGANISM 10/30/2019 MARCOS KINNEY MD Ot J98. 11 ATELECTASIS 10/30/2019 MARCOS KINNEY MD Ot K85. 30 DRUG INDUCED ACUTE PANCREATITIS WITHOUT 10/30/2019 MARCOS KINNEY MD Ot K86. 1 OTHER CHRONIC PANCREATITIS 10/30/2019 MARCOS KINNEY MD, Ot M19. 91 PRIMARY OSTEOARTHRITIS, UNSPECIFIED SITE 10/30/2019 MARCOS KINNEY MD, Ot N40. 0 BENIGN PROSTATIC HYPERPLASIA WITHOUT LOW 10/30/2019 MARCOS KINNEY MD, Ot R73. 9 HYPERGLYCEMIA, UNSPECIFIED 10/30/2019 MARCOS KINNEY MD Ot R91. 8 OTHER NONSPECIFIC ABNORMAL FINDING OF [place] 10/30/2019 MARCOS KINNEY MD, Ot Z90. 49 ACQUIRED ABSENCE OF OTHER SPECIFIED PART 10/30/2019 MARCOS KINNEY MD, Ot Z97. 4 PRESENCE OF EXTERNAL HEARING-AID Procedures There is no data. Results Test Result Range Complete blood count (CBC) with automate d white blood cell (WBC) differential - 10/25/19 18:30 Blood leukocytes automated count (number/volume) 10.7 10*3/uL 4.3-11.0 Blood erythrocytes automated count (number/volume) 5.36 10*6/uL 4.35-5.85 Venous blood hemoglobin measurement (mass/volume) 14.9 g/dL 13.3-17.7 Blood hematocrit (volume fraction) 45 % 40-54 Automated erythrocyte mean corpuscular volume 84 [ foz_us] 80-99 Automated erythrocyte mean corpuscular h emoglobin (mass per erythrocyte) 28 pg 25-34 Automated erythrocyte mean corpuscular h emoglobin concentration measurement (mass/volume) 33 g/dL 32-36 Automated erythrocyte distribution width ratio 14. 0 % 10.0- 14.5 Automated blood platelet count (count/volume) 152 10*3/uL 130-400 Automated blood platelet mean volume measurement 10.5 [foz_us] 7.4-10.4 Automated blood neutrophils/100 leukocytes 69 % 42-75 Automated blood lymphocytes/100 leukocytes 23 % 12-44 Blood monocytes/100 leukocytes 7 % 0-12 Automated blood eosinophils/100 leukocytes 1 % 0-10 Automated blood basophils/100 leukocytes 0 % 0-10 Blood neutrophils automated count (number/volume) 7.4 10*3 1.8-7.8 Blood lymphocytes automated count (number/volume) 2.5 10*3 1.0-4.0 Blood monocytes automated count (number/volume) 0. 7 10*3 0.0-1.0 Automated eosinophil count 0.1 10*3/uL 0 .0-0.3 Automated blood basophil count (count/volume) 0.0 10*3/uL 0.0-0.1 Comprehensive metabolic panel - 10/25/19 18:30 Serum or plasma sodium measurement (moles/volume) 143 mmol/L 135-145 Serum or plasma potassium measurement (moles/volume) 4.4 mmol/L 3.6-5.0 Serum or plasma chloride measurement (moles/volume) 108 mmol/L 98-107 Carbon dioxide 24 mmol/L 21-32 Serum or plasma anion gap determination (moles/volume) 11 mmol/L 5-14 Serum or plasma urea nitrogen measurement (mass/volume ) 22 mg/dL 7-18 Serum or plasma creatinine measurement (mass/volume) 1.19 mg/dL 0.60-1.30 Serum or plasma urea nitrogen/creatinine mass ratio 18 NRG Serum or plasma creatinine measurement w ith calculation of estimated glomerular filtration rate 58 NRG Serum or plasma glucose measurement (mass/volume) 115 mg/dL 70-105 Serum or plasma calcium measurement (mass/volume) 9.3 mg/dL 8.5-10.1 Serum or plasma total bilirubin measurement (mass/volu me) 0.6 mg/dL 0.1-1.0 Serum or plasma alkaline phosphatase juice surement (enzymatic activity/volume) 86 U/L 40-136 Serum or plasma aspartate aminotransfera se measurement (enzymatic activity/volume) 22 U/L 5-34 Serum or plasma alanine aminotransferase measurement (enzymatic activity/volume) 16 U/L 0-55 Serum or plasma protein measurement (mass/volume) 7.2 g/dL 6.4-8.2 Serum or plasma albumin measurement (mass/volume) 4.0 g/dL 3.2-4.5 CALCIUM CORRECTED 9.3 mg/dL 8.5-10.1 Serum or plasma troponin i.cardiac measu rement (mass/volume) - 10/25/19 18:30 Serum or plasma troponin i.cardiac measurement (mass/v olume) < ng/mL <0.028 Lipase - 10/25/19 18:30 Lipase 7624 U/L 8-78 Complete blood count (CBC) with automate d white blood cell (WBC) differential - 10/26/19 04:52 Blood leukocytes automated count (number/volume) 11.7 10*3/uL 4.3-11.0 Blood erythrocytes automated count (number/volume) 5.16 10*6/uL 4.35-5.85 Venous blood hemoglobin measurement (mass/volume) 14.0 g/dL 13.3-17.7 Blood hematocrit (volume fraction) 43 % 40-54 Automated erythrocyte mean corpuscular volume 84 [ foz_us] 80-99 Automated erythrocyte mean corpuscular h emoglobin (mass per erythrocyte) 27 pg 25-34 Automated erythrocyte mean corpuscular h emoglobin concentration measurement (mass/volume) 33 g/dL 32-36 Automated erythrocyte distribution width ratio 14. 0 % 10.0- 14.5 Automated blood platelet count (count/volume) 127 10*3/uL 130-400 Automated blood platelet mean volume measurement 11.0 [foz_us] 7.4-10.4 Automated blood neutrophils/100 leukocytes 90 % 42-75 Automated blood lymphocytes/100 leukocytes 7 % 12-44 Blood monocytes/100 leukocytes 3 % 0-12 Automated blood eosinophils/100 leukocytes 0 % 0-10 Automated blood basophils/100 leukocytes 0 % 0-10 Blood neutrophils automated count (number/volume) 10.5 10*3 1.8-7.8 Blood lymphocytes automated count (number/volume) 0.8 10*3 1.0-4.0 Blood monocytes automated count (number/volume) 0. 4 10*3 0.0-1.0 Automated eosinophil count 0.0 10*3/uL 0 .0-0.3 Automated blood basophil count (count/volume) 0.0 10*3/uL 0.0-0.1 Comprehensive metabolic panel - 10/26/19 04:52 Serum or plasma sodium measurement (moles/volume) 141 mmol/L 135-145 Serum or plasma potassium measurement (moles/volume) 4.3 mmol/L 3.6-5.0 Serum or plasma chloride measurement (moles/volume) 109 mmol/L 98-107 Carbon dioxide 23 mmol/L 21-32 Serum or plasma anion gap determination (moles/volume) 9 mmol/L 5-14 Serum or plasma urea nitrogen measurement (mass/volume ) 23 mg/dL 7-18 Serum or plasma creatinine measurement (mass/volume) 1.05 mg/dL 0.60-1.30 Serum or plasma urea nitrogen/creatinine mass ratio 22 NRG Serum or plasma creatinine measurement w ith calculation of estimated glomerular filtration rate > NRG Serum or plasma glucose measurement (mass/volume) 169 mg/dL 70-105 Serum or plasma calcium measurement (mass/volume) 8.3 mg/dL 8.5-10.1 Serum or plasma total bilirubin measurement (mass/volu me) 0.9 mg/dL 0.1-1.0 Serum or plasma alkaline phosphatase juice surement (enzymatic activity/volume) 83 U/L 40-136 Serum or plasma aspartate aminotransfera se measurement (enzymatic activity/volume) 15 U/L 5-34 Serum or plasma alanine aminotransferase measurement (enzymatic activity/volume) 15 U/L 0-55 Serum or plasma protein measurement (mass/volume) 6.1 g/dL 6.4-8.2 Serum or plasma albumin measurement (mass/volume) 3.6 g/dL 3.2-4.5 CALCIUM CORRECTED 8.6 mg/dL 8.5-10.1 Lipase - 10/26/19 04:52 Lipase 1700 U/L 8-78 Hemoglobin A1c measurement - 10/26/19 04 :52 Blood hemoglobin A1C measurement (mass/volume) 5.8 % 4.0-5.6 MEAN BLOOD GLUCOSE 120 % <=126 Capillary blood glucose measurement by g lucometer (mass/volume) - 10/26/19 11:40 Capillary blood glucose measurement by glucometer (mas s/volume) 124 mg/dL 70-110 Capillary blood glucose measurement by g lucometer (mass/volume) - 10/26/19 16:08 Capillary blood glucose measurement by glucometer (mas s/volume) 121 mg/dL 70-110 Capillary blood glucose measurement by g lucometer (mass/volume) - 10/26/19 20:34 Capillary blood glucose measurement by glucometer (mas s/volume) 124 mg/dL 70-110 Capillary blood glucose measurement by g lucometer (mass/volume) - 10/27/19 05:19 Capillary blood glucose measurement by glucometer (mas s/volume) 102 mg/dL 70-110 Complete blood count (CBC) with automate d white blood cell (WBC) differential - 10/27/19 07:56 Blood leukocytes automated count (number/volume) 24.6 10*3/uL 4.3-11.0 Blood erythrocytes automated count (number/volume) 5.22 10*6/uL 4.35-5.85 Venous blood hemoglobin measurement (mass/volume) 14.3 g/dL 13.3-17.7 Blood hematocrit (volume fraction) 44 % 40-54 Automated erythrocyte mean corpuscular volume 84 [ foz_us] 80-99 Automated erythrocyte mean corpuscular h emoglobin (mass per erythrocyte) 27 pg 25-34 Automated erythrocyte mean corpuscular h emoglobin concentration measurement (mass/volume) 33 g/dL 32-36 Automated erythrocyte distribution width ratio 14. 9 % 10.0- 14.5 Automated blood platelet count (count/volume) 116 10*3/uL 130-400 Automated blood platelet mean volume measurement 10.6 [foz_us] 7.4-10.4 Automated blood neutrophils/100 leukocytes 90 % 42-75 Automated blood lymphocytes/100 leukocytes 4 % 12-44 Blood monocytes/100 leukocytes 6 % 0-12 Automated blood eosinophils/100 leukocytes 0 % 0-10 Automated blood basophils/100 leukocytes 0 % 0-10 Blood neutrophils automated count (number/volume) 22.0 10*3 1.8-7.8 Blood lymphocytes automated count (number/volume) 1.0 10*3 1.0-4.0 Blood monocytes automated count (number/volume) 1. 6 10*3 0.0-1.0 Automated eosinophil count 0.0 10*3/uL 0 .0-0.3 Automated blood basophil count (count/volume) 0.0 10*3/uL 0.0-0.1 Comprehensive metabolic panel - 10/27/19 07:56 Serum or plasma sodium measurement (moles/volume) 144 mmol/L 135-145 Serum or plasma potassium measurement (moles/volume) 4.2 mmol/L 3.6-5.0 Serum or plasma chloride measurement (moles/volume) 109 mmol/L 98-107 Carbon dioxide 24 mmol/L 21-32 Serum or plasma anion gap determination (moles/volume) 11 mmol/L 5-14 Serum or plasma urea nitrogen measurement (mass/volume ) 27 mg/dL 7-18 Serum or plasma creatinine measurement (mass/volume) 1.12 mg/dL 0.60-1.30 Serum or plasma urea nitrogen/creatinine mass ratio 24 NRG Serum or plasma creatinine measurement w ith calculation of estimated glomerular filtration rate > NRG Serum or plasma glucose measurement (mass/volume) 103 mg/dL 70-105 Serum or plasma calcium measurement (mass/volume) 8.3 mg/dL 8.5-10.1 Serum or plasma total bilirubin measurement (mass/volu me) 1.7 mg/dL 0.1-1.0 Serum or plasma alkaline phosphatase juice surement (enzymatic activity/volume) 61 U/L 40-136 Serum or plasma aspartate aminotransfera se measurement (enzymatic activity/volume) 29 U/L 5-34 Serum or plasma alanine aminotransferase measurement (enzymatic activity/volume) 14 U/L 0-55 Serum or plasma protein measurement (mass/volume) 5.7 g/dL 6.4-8.2 Serum or plasma albumin measurement (mass/volume) 3.2 g/dL 3.2-4.5 CALCIUM CORRECTED 8.9 mg/dL 8.5-10.1 Manual absolute plasma cell count - 10/08 03/29 07:56 Blood monocytes/100 leukocytes 5 % NRG Manual blood segmented neutrophils/100 leukocytes 73 % NRG Blood band neutrophils/100 leukocytes 17 % NRG Manual blood lymphocytes/100 leukocytes 5 % NRG Manual eosinophils/100 leukocytes in nose 0 % NRG Manual blood basophils/100 leukocytes 0 % NRG Blood erythrocyte morphology finding identification NORMAL NRG PROCALCITONIN (PCT) - 10/27/19 07:56 PROCALCITONIN (PCT) 1.83 ng/mL <0.10 Blood lactic acid measurement (moles/vol ume) - 10/27/19 10:28 Blood lactic acid measurement (moles/volume) 1.94 mmol/L 0.50-2.00 Bacterial blood culture - 10/27/19 10:28 Bacterial blood culture NG NRG Bacterial blood culture - 10/27/19 10:35 Bacterial blood culture NG NRG Capillary blood glucose measurement by g lucometer (mass/volume) - 10/27/19 11:40 Capillary blood glucose measurement by glucometer (mas s/volume) 96 mg/dL 70-110 Capillary blood glucose measurement by g lucometer (mass/volume) - 10/27/19 15:44 Capillary blood glucose measurement by glucometer (mas s/volume) 91 mg/dL 70-110 Capillary blood glucose measurement by g lucometer (mass/volume) - 10/27/19 20:20 Capillary blood glucose measurement by glucometer (mas s/volume) 93 mg/dL 70-110 Complete blood count (CBC) with automate d white blood cell (WBC) differential - 10/28/19 04:27 Blood leukocytes automated count (number/volume) 20.1 10*3/uL 4.3-11.0 Blood erythrocytes automated count (number/volume) 4.60 10*6/uL 4.35-5.85 Venous blood hemoglobin measurement (mass/volume) 12.6 g/dL 13.3-17.7 Blood hematocrit (volume fraction) 39 % 40-54 Automated erythrocyte mean corpuscular volume 85 [ foz_us] 80-99 Automated erythrocyte mean corpuscular h emoglobin (mass per erythrocyte) 27 pg 25-34 Automated erythrocyte mean corpuscular h emoglobin concentration measurement (mass/volume) 32 g/dL 32-36 Automated erythrocyte distribution width ratio 14. 6 % 10.0- 14.5 Automated blood platelet count (count/volume) 107 10*3/uL 130-400 Automated blood platelet mean volume measurement 10.7 [foz_us] 7.4-10.4 Automated blood neutrophils/100 leukocytes 88 % 42-75 Automated blood lymphocytes/100 leukocytes 5 % 12-44 Blood monocytes/100 leukocytes 7 % 0-12 Automated blood eosinophils/100 leukocytes 0 % 0-10 Automated blood basophils/100 leukocytes 0 % 0-10 Blood neutrophils automated count (number/volume) 17.8 10*3 1.8-7.8 Blood lymphocytes automated count (number/volume) 1.0 10*3 1.0-4.0 Blood monocytes automated count (number/volume) 1. 4 10*3 0.0-1.0 Automated eosinophil count 0.0 10*3/uL 0 .0-0.3 Automated blood basophil count (count/volume) 0.0 10*3/uL 0.0-0.1 Comprehensive metabolic panel - 10/28/19 04:27 Serum or plasma sodium measurement (moles/volume) 141 mmol/L 135-145 Serum or plasma potassium measurement (moles/volume) 3.5 mmol/L 3.6-5.0 Serum or plasma chloride measurement (moles/volume) 106 mmol/L 98-107 Carbon dioxide 25 mmol/L 21-32 Serum or plasma anion gap determination (moles/volume) 10 mmol/L 5-14 Serum or plasma urea nitrogen measurement (mass/volume ) 22 mg/dL 7-18 Serum or plasma creatinine measurement (mass/volume) 1.06 mg/dL 0.60-1.30 Serum or plasma urea nitrogen/creatinine mass ratio 21 NRG Serum or plasma creatinine measurement w ith calculation of estimated glomerular filtration rate > NRG Serum or plasma glucose measurement (mass/volume) 95 mg/dL 70-105 Serum or plasma calcium measurement (mass/volume) 8.1 mg/dL 8.5-10.1 Serum or plasma total bilirubin measurement (mass/volu me) 2.0 mg/dL 0.1-1.0 Serum or plasma alkaline phosphatase juice surement (enzymatic activity/volume) 60 U/L 40-136 Serum or plasma aspartate aminotransfera se measurement (enzymatic activity/volume) 30 U/L 5-34 Serum or plasma alanine aminotransferase measurement (enzymatic activity/volume) 17 U/L 0-55 Serum or plasma protein measurement (mass/volume) 5.3 g/dL 6.4-8.2 Serum or plasma albumin measurement (mass/volume) 2.8 g/dL 3.2-4.5 CALCIUM CORRECTED 9.1 mg/dL 8.5-10.1 PROCALCITONIN (PCT) - 10/28/19 04:27 PROCALCITONIN (PCT) 2.86 ng/mL <0.10 Lipase - 10/28/19 04:27 Lipase 175 U/L 8-78 Capillary blood glucose measurement by g lucometer (mass/volume) - 10/28/19 05:06 Capillary blood glucose measurement by glucometer (mas s/volume) 93 mg/dL 70-110 Capillary blood glucose measurement by g lucometer (mass/volume) - 10/28/19 11:46 Capillary blood glucose measurement by glucometer (mas s/volume) 98 mg/dL 70-110 Complete urinalysis with reflex to cultu re - 10/28/19 11:55 Urine color determination YELLOW NRG Urine clarity determination CLEAR NR G Urine pH measurement by test strip 6.0 5-9 Specific gravity of urine by test strip 1.020 1.016-1.022 Urine protein assay by test strip, semi-quantitative 2+ NEGATIVE Urine glucose detection by automated test strip NE GATIVE NEGATIVE Erythrocytes detection in urine sediment by light micr oscopy 2+ NEGATIVE Urine ketones detection by automated test strip NE GATIVE NEGATIVE Urine nitrite detection by test strip NEGATIVE NEGATIVE Urine total bilirubin detection by test strip NEGA TIVE NEGATIVE Urine urobilinogen measurement by automated test strip (mass/volume) 1.0 mg/dL < = 1.0 Urine leukocyte esterase detection by dipstick NEG ATIVE NEGATIVE Automated urine sediment erythrocyte cou nt by microscopy (number/high power field) [HPF] NRG Automated urine sediment leukocyte count by microscopy (number/high power field) RARE NRG Bacteria detection in urine sediment by light microsco py NEGATIVE NRG Squamous epithelial cells detection in u rine sediment by light microscopy 0-2 NRG Crystals detection in urine sediment by light microsco py PRESENT NRG Casts detection in urine sediment by light microscopy NONE NRG Mucus detection in urine sediment by light microscopy NEGATIVE NRG Complete urinalysis with reflex to culture NO NRG Amorphous sediment detection in urine sediment by ligh t microscopy FEW RIAZ URATES NRG Capillary blood glucose measurement by g lucometer (mass/volume) - 10/28/19 16:08 Capillary blood glucose measurement by glucometer (mas s/volume) 110 mg/dL 70-110 Capillary blood glucose measurement by g lucometer (mass/volume) - 10/28/19 20:49 Capillary blood glucose measurement by glucometer (mas s/volume) 85 mg/dL 70-110 Complete blood count (CBC) with automate d white blood cell (WBC) differential - 10/29/19 05:35 Blood leukocytes automated count (number/volume) 16.7 10*3/uL 4.3-11.0 Blood erythrocytes automated count (number/volume) 4.35 10*6/uL 4.35-5.85 Venous blood hemoglobin measurement (mass/volume) 11.9 g/dL 13.3-17.7 Blood hematocrit (volume fraction) 37 % 40-54 Automated erythrocyte mean corpuscular volume 85 [ foz_us] 80-99 Automated erythrocyte mean corpuscular h emoglobin (mass per erythrocyte) 27 pg 25-34 Automated erythrocyte mean corpuscular h emoglobin concentration measurement (mass/volume) 32 g/dL 32-36 Automated erythrocyte distribution width ratio 14. 6 % 10.0- 14.5 Automated blood platelet count (count/volume) 113 10*3/uL 130-400 Automated blood platelet mean volume measurement 10.6 [foz_us] 7.4-10.4 Automated blood neutrophils/100 leukocytes 88 % 42-75 Automated blood lymphocytes/100 leukocytes 5 % 12-44 Blood monocytes/100 leukocytes 7 % 0-12 Automated blood eosinophils/100 leukocytes 0 % 0-10 Automated blood basophils/100 leukocytes 0 % 0-10 Blood neutrophils automated count (number/volume) 14.7 10*3 1.8-7.8 Blood lymphocytes automated count (number/volume) 0.8 10*3 1.0-4.0 Blood monocytes automated count (number/volume) 1. 2 10*3 0.0-1.0 Automated eosinophil count 0.0 10*3/uL 0 .0-0.3 Automated blood basophil count (count/volume) 0.0 10*3/uL 0.0-0.1 Comprehensive metabolic panel - 10/29/19 05:35 Serum or plasma sodium measurement (moles/volume) 141 mmol/L 135-145 Serum or plasma potassium measurement (moles/volume) 3.2 mmol/L 3.6-5.0 Serum or plasma chloride measurement (moles/volume) 104 mmol/L 98-107 Carbon dioxide 25 mmol/L 21-32 Serum or plasma anion gap determination (moles/volume) 12 mmol/L 5-14 Serum or plasma urea nitrogen measurement (mass/volume ) 17 mg/dL 7-18 Serum or plasma creatinine measurement (mass/volume) 1.06 mg/dL 0.60-1.30 Serum or plasma urea nitrogen/creatinine mass ratio 16 NRG Serum or plasma creatinine measurement w ith calculation of estimated glomerular filtration rate > NRG Serum or plasma glucose measurement (mass/volume) 88 mg/dL 70-105 Serum or plasma calcium measurement (mass/volume) 8.2 mg/dL 8.5-10.1 Serum or plasma total bilirubin measurement (mass/volu me) 1.8 mg/dL 0.1-1.0 Serum or plasma alkaline phosphatase juice surement (enzymatic activity/volume) 53 U/L 40-136 Serum or plasma aspartate aminotransfera se measurement (enzymatic activity/volume) 23 U/L 5-34 Serum or plasma alanine aminotransferase measurement (enzymatic activity/volume) 16 U/L 0-55 Serum or plasma protein measurement (mass/volume) 5.6 g/dL 6.4-8.2 Serum or plasma albumin measurement (mass/volume) 2.9 g/dL 3.2-4.5 CALCIUM CORRECTED 9.1 mg/dL 8.5-10.1 PROCALCITONIN (PCT) - 10/29/19 05:35 PROCALCITONIN (PCT) 1.94 ng/mL <0.10 Capillary blood glucose measurement by g lucometer (mass/volume) - 10/29/19 11:33 Capillary blood glucose measurement by glucometer (mas s/volume) 106 mg/dL 70-110 Capillary blood glucose measurement by g lucometer (mass/volume) - 10/29/19 16:43 Capillary blood glucose measurement by glucometer (mas s/volume) 117 mg/dL 70-110 Capillary blood glucose measurement by g lucometer (mass/volume) - 10/29/19 20:11 Capillary blood glucose measurement by glucometer (mas s/volume) 126 mg/dL 70-110 Complete blood count (CBC) with automate d white blood cell (WBC) differential - 10/30/19 05:10 Blood leukocytes automated count (number/volume) 14.5 10*3/uL 4.3-11.0 Blood erythrocytes automated count (number/volume) 4.45 10*6/uL 4.35-5.85 Venous blood hemoglobin measurement (mass/volume) 12.2 g/dL 13.3-17.7 Blood hematocrit (volume fraction) 38 % 40-54 Automated erythrocyte mean corpuscular volume 85 [ foz_us] 80-99 Automated erythrocyte mean corpuscular h emoglobin (mass per erythrocyte) 27 pg 25-34 Automated erythrocyte mean corpuscular h emoglobin concentration measurement (mass/volume) 32 g/dL 32-36 Automated erythrocyte distribution width ratio 14. 2 % 10.0- 14.5 Automated blood platelet count (count/volume) 144 10*3/uL 130-400 Automated blood platelet mean volume measurement 10.6 [foz_us] 7.4-10.4 Automated blood neutrophils/100 leukocytes 84 % 42-75 Automated blood lymphocytes/100 leukocytes 6 % 12-44 Blood monocytes/100 leukocytes 9 % 0-12 Automated blood eosinophils/100 leukocytes 1 % 0-10 Automated blood basophils/100 leukocytes 0 % 0-10 Blood neutrophils automated count (number/volume) 12.2 10*3 1.8-7.8 Blood lymphocytes automated count (number/volume) 0.9 10*3 1.0-4.0 Blood monocytes automated count (number/volume) 1. 3 10*3 0.0-1.0 Automated eosinophil count 0.1 10*3/uL 0 .0-0.3 Automated blood basophil count (count/volume) 0.0 10*3/uL 0.0-0.1 Comprehensive metabolic panel - 10/30/19 05:10 Serum or plasma sodium measurement (moles/volume) 141 mmol/L 135-145 Serum or plasma potassium measurement (moles/volume) 3.1 mmol/L 3.6-5.0 Serum or plasma chloride measurement (moles/volume) 102 mmol/L 98-107 Carbon dioxide 28 mmol/L 21-32 Serum or plasma anion gap determination (moles/volume) 11 mmol/L 5-14 Serum or plasma urea nitrogen measurement (mass/volume ) 15 mg/dL 7-18 Serum or plasma creatinine measurement (mass/volume) 1.04 mg/dL 0.60-1.30 Serum or plasma urea nitrogen/creatinine mass ratio 14 NRG Serum or plasma creatinine measurement w ith calculation of estimated glomerular filtration rate > NRG Serum or plasma glucose measurement (mass/volume) 93 mg/dL 70-105 Serum or plasma calcium measurement (mass/volume) 8.4 mg/dL 8.5-10.1 Serum or plasma total bilirubin measurement (mass/volu me) 1.3 mg/dL 0.1-1.0 Serum or plasma alkaline phosphatase juice surement (enzymatic activity/volume) 66 U/L 40-136 Serum or plasma aspartate aminotransfera se measurement (enzymatic activity/volume) 22 U/L 5-34 Serum or plasma alanine aminotransferase measurement (enzymatic activity/volume) 18 U/L 0-55 Serum or plasma protein measurement (mass/volume) 6.0 g/dL 6.4-8.2 Serum or plasma albumin measurement (mass/volume) 3.1 g/dL 3.2-4.5 CALCIUM CORRECTED 9.1 mg/dL 8.5-10.1 Capillary blood glucose measurement by g lucometer (mass/volume) - 10/30/19 11:39 Capillary blood glucose measurement by glucometer (mas s/volume) 102 mg/dL 70-110 Encounters ACCT No. Visit Date/Time Discharge Status Pt. Type Provider Facility Loc./Unit Complaint [id number] 10/25/2019 20:50:00 020 12:20:00 DIS Outpatient MARCOS KINNEY MD [facility] 4TH ACUTE PANCREATITIS [id number] 05/08/2018 07:41:00 018 23:59:59 CLS Outpatient NATIVIDAD RAMIREZ MD, FACC, FACP CC DS [facility] CARD CAD [id number] 04/25/2018 14:06:00 018 23:59:59 CLS Preadmit NATIVIDAD RAMIREZ MD, FACC, FACP CCDS [facility] CARD CAD [id number] 09/27/2017 10:08:00 018 23:59:59 CLS Outpatient NATIVIDAD RAMIREZ MD, FACC, FACP CC DS [facility] CARD CAD [id number] 09/07/2015 09:27:00 016 23:59:59 CLS Outpatient CARLEEN ROSADO DO [facility] RAD PANCREATITIS FO LLOW UP [id number] 07/24/2015 10:21:00 016 10:40:00 DIS Inpatient INGRID GIFFORD DO, V [facility] 4TH ACUTE PANCREATITIS PANC REATIC NECROSIS [id number] 05/22/2015 11:42:00 015 23:59:59 CLS Outpatient CARLEEN ROSADO DO [facility] RAD RADICULOAPTHY L UMBAR [id number] 12/02/2014 09:42:00 015 12:00:00 DIS Outpatient HUNTER DEAL MD [facility] WOUNDCARE [id number] 07/30/2014 17:08:00 015 13:45:00 DIS Inpatient CARLEEN ROSADO DO [facility] CSD CHEST PAIN,IRMA YCARDIA [id number] 02/01/2013 06:57:00 013 09:50:00 DIS Outpatient BOB ANDREW MD [facility] SDC SCREENING [id number] 01/30/2013 08:12:00 013 23:59:59 CLS Outpatient BOB ANDREW MD [facility] PREOP SCREENING [id number] 07/30/2014 18:35:00 Document Registration [id number] 09/19/2011 13:10:00 Document Registration [id number] 12/01/2010 10:26:00 Document Registration [id number] 11/23/2010 05:39:00 Document Registration [id number] 11/08/2010 07:26:00 Document Registration [id number] 08/19/2010 08:34:00 Document Registration [id number] 05/19/2010 08:37:00 Document Registration [id number] 04/13/2010 10:56:00 Document Registration [id number] 03/24/2010 19:11:00 Document Registration [id number] 04/20/2009 09:18:00 Document Registration
[2019-11-06 09:46] LABS: BASOPHILS % (AUTO) 0 % (0-10); EOSINOPHILS # (AUTO) 0.1 10^3/uL (0.0-0.3); EOSINOPHILS % (AUTO) 1 % (0-10); HEMATOCRIT 38 % (40-54); HEMOGLOBIN 12.4 G/DL (13.3-17.7); LYMPHOCYTES # (AUTO) 1.1 X 10^3 (1.0-4.0); LYMPHOCYTES % (AUTO) 8 % (12-44); MEAN CORPUSCULAR HEMOGLOBIN 27 PG (25-34); MEAN CORPUSCULAR HGB CONC 33 G/DL (32-36); MEAN CORPUSCULAR VOLUME 83 FL (80-99); MEAN PLATELET VOLUME 10.6 FL (7.4-10.4); MONOCYTES # (AUTO) 1.4 X 10^3 (0.0-1.0); MONOCYTES % (AUTO) 10 % (0-12); NEUTROPHILS # (AUTO) 10.9 X 10^3 (1.8-7.8); NEUTROPHILS % (AUTO) 81 % (42-75); PLATELET COUNT 300 10^3/uL (130-400); RED CELL DISTRIBUTION WIDTH 14.3 % (10.0-14.5); WHITE BLOOD COUNT 13.5 10^3/uL (4.3-11.0)
[2019-11-06 10:11] LABS: ALANINE AMINOTRANSFERASE 31 U/L (0-55); ALKALINE PHOSPHATASE 145 U/L (40-136); BILIRUBIN,TOTAL 1.5 MG/DL (0.1-1.0); BUN/CREATININE RATIO 20; CALCIUM 8.5 MG/DL (8.5-10.1); CARBON DIOXIDE 24 MMOL/L (21-32); CHLORIDE 104 MMOL/L (98-107); CREATININE SERUM 0.86 MG/DL (0.60-1.30); GFR ESTIMATED > 60; GLUCOSE 102 MG/DL (70-105); LIPASE 271 U/L (8-78); POTASSIUM 3.9 MMOL/L (3.6-5.0); SODIUM 143 MMOL/L (135-145); TOTAL PROTEIN 6.1 GM/DL (6.4-8.2)
[2019-11-06 10:24] LABS: SMEAR SCAN COMMENT YES
[2019-11-06] MEDS ORDERED: HOLD METFORMIN - RECEIVED CONTRAST 20 ML VIAL IV SCH (10:30)
[2019-11-06] MEDS ORDERED: NS 100 ML (IVPB) BAG IV ONE (10:30)
[2019-11-06] MEDS ORDERED: IOHEXOL 350 MG/ML 100 ML (OMNIPAQUE 350) VIAL IV ONE (10:30)
--- NOTE | 2019-11-06 11:08 | Diagnostic Imaging Report ---
EXAMINATION: CT Abdomen and Pelvis with intravenous contrast. TECHNIQUE: Multiple contiguous axial images were obtained through the abdomen and pelvis after the uneventful administration of intravenous contrast. All CT scans use one or more of the following dose optimizing techniques: automated exposure control, MA and/or KvP adjustment based on a patient size and exam type, or iterative reconstruction. HISTORY: Abdominal pain. COMPARISON: 10/25/2019. FINDINGS: Limited views of the lower thorax show small bilateral pleural effusions with overlying atelectasis. Small liver cysts are unchanged from prior exam. Gallbladder is surgically absent. There is mild biliary ductal dilation in the left hemiliver, new from prior exam. The pancreatic head and body have been replaced by fluid attenuating collections which expand the pancreatic parenchyma and result in multifocal areas of non-enhancement, consistent with pancreatic necrosis. These findings are consistent with acute necrotic collections. The largest measures 7.4 x 5.7 cm but they are multifocal and likely some communicate with others. There is mass effect on the superior mesenteric vein which is markedly attenuated but remains patent more distally at the mesentery. No pseudoaneurysm is seen. The collections about the duodenum and exert mass effect upon it. The stomach is fluid-filled and distended which may be related to partial obstruction of the duodenum by the fluid collections. Spleen and adrenal glands are normal. Kidneys enhance symmetrically without focal lesion. No hydronephrosis. Urinary bladder is normal. Brachytherapy beads are present in the prostate. There is diverticulosis without diverticulitis. No bowel obstruction or inflammation is seen. Small amount of free fluid is present in the pelvis. No free air is seen. There are are mildly enlarged peripancreatic lymph nodes which are likely reactive but otherwise no lymphadenopathy. Abdominal aorta is atherosclerotic but nonaneurysmal. There are no suspicious osseous lesions. 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 These exert mass effect on the duodenum which may result in partial outlet obstruction and they also exert mass effect on the common bile duct resulting in mild biliary ductal dilation. Dictated by: Dictated on workstation # [id number]
[2019-11-06 11:09] LABS: BILIRUBIN,URINE NEGATIVE (NEGATIVE); CLARITY,URINE CLEAR; COLOR,URINE YELLOW; GLUCOSE, URINE (UA) TRACE (NEGATIVE); KETONES,URINE 1+ (NEGATIVE); LEUKOCYTE ESTERASE ,URINE NEGATIVE (NEGATIVE); NITRITE,URINE NEGATIVE (NEGATIVE); PROTEIN,URINE 1+ (NEGATIVE)
[2019-11-06 11:17] LABS: BACTERIA,URINE NEGATIVE /HPF; SQUAMOUS EPITHELIAL CELL,UR 0-2 /HPF
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
[2019-11-06] MEDS ORDERED: MEROPENEM 1,000 MG in WATER (STERILE) FOR INJECTION 20 ML IV ONE (12:15)
[2019-11-06] MEDS ORDERED: ONDANSETRON 4 MG/2 ML (SDV) Z0FRAN IV PRN (13:15)
[2019-11-06] MEDS ORDERED: CATHETER FLUSH 10 ML SYR IV PRN (13:15)
--- NOTE | 2019-11-06 13:42 | NUR ---
SPOKE WITH THE PT TO COMPLETE THE MED REC THE PT WAS RECENTLY HERE AND I SPOKE WITH HIM ON 10-28-2019 TO COMPLETE THE MED REC AT THAT TIME. WHEN HE WAS DISCHARGED THE STOPPED PRAVASTATIN- AND TODAY WHEN I SPOKE WITH THE PT HE INDICATED HE HAD QUIT TAKING THIS MEDICATION. ALL OTHER MEDICATIONS REMAINED THE SAME AND THE FILL DATES AND QUANTITIES ARE ON THE NOTE FROM 10-28-2019 OTC MEDS: ASPIRIN
[2019-11-06 13:47] VITALS: BP 119/58
[2019-11-06] MEDS: D5 1/2 NS W/KCL 20 MEQ/L 1,000 ML IV SCH ×3 (14:14→22:31)
--- NOTE | 2019-11-06 14:20 | CONSULTATION REPORT ---
DATE OF SERVICE: 11/06/2019 ATTENDING PRIMARY CARE PHYSICIAN: Jesus Arcos DO HISTORY OF PRESENT ILLNESS: The patient is an 88-year-old male who we had seen recently. He was recently admitted for epigastric pain and nausea and vomiting. He underwent a CT scan, which did show pancreatitis. He was admitted and medically managed with bowel rest. However, he did have elevation of white count; however, this did resolve overtime. During that admission his laboratory work normalized and his pain was under control. His chief complaint was more related to nausea. Once we were able to get his nausea under control and is able to tolerate liquids and some foods he was discharged home. He presented to the Emergency Department today again with nausea and vomiting. Another CT scan was performed, which did show pancreatic necrosis, which appears to be sterile. There also appears to be some cyst formation causing some mass effect on the common bile duct as well as some obliteration of the pancreatic duct as well. He does not have any significant pain; however, nausea and vomiting as a chief complaint. PAST MEDICAL HISTORY: Hypertension, hyperlipidemia, BPH, history of pancreatitis. PAST SURGICAL HISTORY: Cholecystectomy, bilateral carpal tunnel release, bilateral inguinal hernia repair with mesh. ALLERGIES: No known drug allergies. MEDICATIONS: Amlodipine 10 mg daily, aspirin 81 mg every other day, citalopram 10 mg daily, lisinopril 20 mg daily, pravastatin 10 mg daily, tamsulosin 0.4 mg daily. SOCIAL HISTORY: Negative smoke, negative alcohol. FAMILY HISTORY: Mother and father with some form of cancer. VITAL SIGNS: Temperature 36.7, blood pressure 139/84, pulse 75, respirations 18, pulse ox 98% on room air. REVIEW OF SYSTEMS: Well-nourished male currently in no acute distress. He is not experiencing any shortness of breath or difficulty breathing. No chest pain, palpitations, diaphoresis. Intermittent episodes of nausea and vomiting at home. No hematemesis, no coffee ground emesis. He is having some bowel function; however, scant. No fever, chills with some weight loss in the past few weeks. All other review of systems negative. PHYSICAL EXAMINATION: CHEST: A few scattered rales bilaterally. HEART: Regular, no murmurs. EXTREMITIES: No lower extremity edema, negative Homans sign. HEENT: No scleral icterus. NECK: No cervical lymphadenopathy. ABDOMEN: Soft, slightly distended. There is mild discomfort on deep palpation in the epigastric region. No peritoneal signs. SKIN: Warm, dry. LABORATORY DATA: WBC 13.5, hemoglobin 12.4, hematocrit 38, platelets of 300. BUN 17, creatinine 0.86, total bilirubin 1.5, lipase 271. ASSESSMENT AND PLAN: An 88-year-old male with apparent history of pancreatitis and sterile pancreatic necrosis. We will recommend continued medical management with bowel rest, anti-nausea and pain control as necessary and clear liquids as much as he can tolerate. If he has persistent or worsening symptoms, which shows continued signs of ductal dilatation or gastric outlet obstruction he will need to be transferred to gastroenterology for a stent placement. Job ID: [id number] DocumentID: [id number] Dictated Date: 11/06/2019 13:11:02 Trip Motor Operator Date: 11/06/2019 14:19:27 Dictated By: NOEL BRADSHAW MD
--- NOTE | 2019-11-06 14:36 | History & Physical-Hospitalist ---
History of Present Illness HPI/Chief Complaint Rishi Anderson is an 88-year-old male with past medical history of hypertension, hyperlipidemia, BPH, recurrent pancreatitis, who presented with nausea and vomiting. He was recently admitted with acute pancreatitis. His course was uncomplicated and he tolerated a diet and was discharged home. After returning home he developed nausea and vomiting and he reports that he has not been able to hold anything down at home. He says he is been eating and drinking minimally. He threw up today in the emergency room. He denies pain. he denies fevers and chills. He denies chest pain or shortness of breath. He denies d iarrhea. He has no other complaints or concerns. Source: patient Exam Limitations: no limitations Date Seen 11/06/19 Time Seen by a Provider: 14:31 Attending Physician Marcos Kinney MD PCP Jesus Arcos DO Referring Physician Date of Admission Nov 06, 2019 at 12:08 Home Medications & Allergies Home Medications Reviewed patient Home Medication Reconciliation performed by pharmacy medication reconciliations computer aided design technician and/or nursing. Patients Allergies have been reviewed. Allergies Allergies Coded Allergies No Known Drug Allergies (Unverified07/30/14) Past Zakozse-Jkvmgf-Gtmhmz Hx Past Med/Social Hx: Reviewed Nursing Past Med/Soc Hx Patient Social History Alcohol Use: Denies Use Recreational Drug Use: No Smoking Status: Never a Smoker Recent Foreign Travel: No Contact w/other who traveled: No Recent Hopitalizations: No Recent Infectious Disease Expo: No Immunizations Up To Date Date of Pneumonia Vaccine: Jul 31, 2014 Date of Influenza Vaccine: May 10, 2015 Past Medical History Surgeries: Gallbladder, Orthopedic Cardiac: Hypertension Genitourinary: Prostate Problems Gastrointestinal: Pancreatitis, Polyps, Gall Bladder Disease Musculoskeletal: Arthritis HEENT: Cataract Hearing Impairment: Bilateral Hearing Aide Cancer: Prostate History of Blood Disorders: No Family History Hypertension 19 FATHER 19 MOTHER Review of Systems Constitutional: no symptoms reported EENTM: no symptoms reported Respiratory: no symptoms reported Cardiovascular: no symptoms reported Gastrointestinal: nausea, vomiting Genitourinary: no symptoms reported Musculoskeletal: no symptoms reported Skin: no symptoms reported Psychiatric/Neurological: No Symptoms Reported Physical Exam Physical Exam Vital Signs Vital Signs - First Documented 11/06/19 11/06/19 09:25 13:47 Temp 36.7 Pulse 75 Resp 18 B/P (MAP) 139/84 (102) Pulse Ox 98 O2 Delivery Room Air Capillary Refill : Less Than 3 Seconds Height, Weight, BMI Height: 5'8.00" Weight: 169lbs. 0.0oz. 76.132117ss; 24.26 BMI Method: General Appearance: No Apparent Distress HEENT: PERRL/EOMI, Pharynx Normal Neck: Normal Inspection, Supple Respiratory: Lungs Clear, Normal Breath Sounds, No Respiratory Distress Cardiovascular: Regular Rate, Rhythm, No Edema, No Murmur Gastrointestinal: Normal Bowel Sounds, Soft, Tenderness (Left-sided) Extremity: Normal Inspection, Non Tender, No Pedal Edema Neurologic/Psychiatric: Alert, Oriented x3, No Motor/Sensory Deficits, Normal Mood/Affect Skin: Normal Color, Warm/Dry Results Results/Procedures Labs Laboratory Tests 11/06/19 09:40 Patient resulted labs reviewed. Imaging: Reviewed Imaging Report Assessment/Plan Admission Diagnosis Acute pancreatic necrosis Admission Status: Inpatient Order (span 2 midnights) Reason for Inpatient Admission: Acute pancreatic necrosis requiring further evaluation and possible endoscopic intervention Assessment and Plan Acute pancreatic necrosis Recurrent pancreatitis Possible gastric outlet obstruction Recent hospitalization due to pancreatitis Presented with worsening nausea and vomiting Lipase elevated CT revealed pancreatic necrosis with possible gastric outlet obstruction Gen. surgery consulted, appreciate assistance Pain regimen ordered Antiemetics ordered IV fluids Begin meropenem for possible infected necrosis May eventually require transfer for cystogastrostomy, common bile duct, and/or pancreatic duct stenting HTN HLD BPH Hold home meds DVT prophylaxis: Lovenox Diagnosis/Problems Diagnosis/Problems (1) Acute pancreatic necrosis Status: Acute MARCOS KINNEY MD Nov 06, 2019 14:36
--- NOTE | 2019-11-06 14:36 | NUR ---
CSMI (Clinically Significant Medication Issue) Identified: Date/Time Identified: 11/06/191435 Physician/Provider that was Notified: MARCOS KINNEY MD Date/Time Notified: 11/06/191435 Issues Identified: Action Plan to Resolve (if resolved add date/time): Addendum: 11/06/19 at 1438 by ANNABELLA VELASCO RN TRUDI VAZQUEZ admitted to room 415-1, with an admitting diagnosis of pancreatitis , on 11/06/19 from ED via wheel chair , accompanied by staff .TRUDI VAZQUEZ introduced to surroundings, call light, bed controls, phone, TV, temperature control, lights, meal times, smoking policy, visitor policy, side rail policy, bathrooms and showers. Patient Rights given to patient in the handbook. TRUDI VAZQUEZ verbalizes understanding that [facility] is not responsible for the loss or damage to any personal effects or valuables that are kept in the patients posession during their hospitalization. The following Patient Care Plans and discharge were discussed with the ptient. TRUDI VAZQUEZ verbalizes understanding of Interdisciplinary Patient Education. Patient was informed about the Rapid Response Team and its purpose.
[2019-11-06] MEDS: ENOXAPARIN 40 MG/0.4 ML (LOVENOX) SYR SC SCH (15:28)
[2019-11-06 15:54] VITALS: BP 160/68
[2019-11-06] MEDS: MEROPENEM 500 MG/SWFI 10 ML IV PUSH IV SCH ×2 (18:16)
[2019-11-06 20:00] VITALS: BP 156/61
[2019-11-06] MEDS: FAMOTIDINE 20MG/2ML IV (PEPCID) IV SCH (20:10)
[2019-11-07] VITALS (7 sets, daily range): BP systolic 138–160; BP diastolic 66–74
[2019-11-07] MEDS: MEROPENEM 500 MG/SWFI 10 ML IV PUSH IV SCH ×10 (00:47→23:40)
[2019-11-07 05:45] LABS: BASOPHILS % (AUTO) 0 % (0-10); EOSINOPHILS # (AUTO) 0.1 10^3/uL (0.0-0.3); EOSINOPHILS % (AUTO) 1 % (0-10); HEMATOCRIT 34 % (40-54); LYMPHOCYTES # (AUTO) 0.9 X 10^3 (1.0-4.0); LYMPHOCYTES % (AUTO) 7 % (12-44); MEAN CORPUSCULAR HEMOGLOBIN 27 PG (25-34); MEAN CORPUSCULAR HGB CONC 32 G/DL (32-36); MEAN CORPUSCULAR VOLUME 84 FL (80-99); MEAN PLATELET VOLUME 10.7 FL (7.4-10.4); MONOCYTES # (AUTO) 1.5 X 10^3 (0.0-1.0); MONOCYTES % (AUTO) 13 % (0-12); NEUTROPHILS # (AUTO) 9.6 X 10^3 (1.8-7.8); NEUTROPHILS % (AUTO) 80 % (42-75); PLATELET COUNT 358 10^3/uL (130-400); RED CELL DISTRIBUTION WIDTH 14.4 % (10.0-14.5); WHITE BLOOD COUNT 12.1 10^3/uL (4.3-11.0)
[2019-11-07 05:57] LABS: BAND NEUTROPHILS 8 %; BASOPHILS % (MANUAL) 1 %; LYMPHOCYTES % (MANUAL) 7 %; MONOCYTES % (MANUAL) 9 %; NEUTROPHILS % (MANUAL) 75 %
[2019-11-07 06:06] LABS: ALANINE AMINOTRANSFERASE 42 U/L (0-55); ALBUMIN 2.7 GM/DL (3.2-4.5); ALKALINE PHOSPHATASE 202 U/L (40-136); BILIRUBIN,TOTAL 1.5 MG/DL (0.1-1.0); BUN/CREATININE RATIO 17; CALCIUM 7.9 MG/DL (8.5-10.1); CARBON DIOXIDE 23 MMOL/L (21-32); CHLORIDE 105 MMOL/L (98-107); CREATININE SERUM 0.83 MG/DL (0.60-1.30); GFR ESTIMATED > 60; GLUCOSE 135 MG/DL (70-105); MAGNESIUM 1.9 MG/DL (1.6-2.4); POTASSIUM 4.1 MMOL/L (3.6-5.0); SODIUM 138 MMOL/L (135-145); TOTAL PROTEIN 5.6 GM/DL (6.4-8.2)
[2019-11-07] MEDS: FAMOTIDINE 20MG/2ML IV (PEPCID) IV SCH ×2 (07:58→20:15)
--- NOTE | 2019-11-07 09:27 | Progress Note - Hospitalist ---
Subjective HPI/CC On Admission Date Seen by Provider: Nov 07, 2019 Time Seen by Provider: 08:50 Rishi Anderson is an 88-year-old male with past medical history of hypertension, hyperlipidemia, BPH, recurrent pancreatitis, who presented with nausea and vomiting. He was recently admitted with acute pancreatitis. His course was uncomplicated and he tolerated a diet and was discharged home. After returning home he developed nausea and vomiting and he reports that he has not been able to hold anything down at home. He says he is been eating and drinking minimally. He threw up today in the emergency room. He denies pain. he denies fevers and chills. He denies chest pain or shortness of breath. He denies diarrhea. He has no other complaints or concerns. Subjective/Events-last exam He reports no nausea or vomiting since admission. He has been tolerating ice chips. He denies any fevers or chills. He denies any chest pain or shortness of breath. He denies any abdominal pain. He denies any diarrhea. He has not had any bowel movements. He reports being hungry and wants to try clear liquids. Objective Exam Vital Signs Vital Signs Date Time Temp Pulse Resp B/P (MAP) Pulse Ox O2 Delivery O2 Flow Rate FiO2 11/07/19 04:00 37.3 71 18 147/71 (96) 95 Room Air Capillary Refill : NONE General Appearance: No Apparent Distress, WD/WN Respiratory: Lungs Clear, Normal Breath Sounds, No Respiratory Distress Cardiovascular: Regular Rate, Rhythm, No Edema, No Murmur Gastrointestinal: Normal Bowel Sounds, Non Tender, Soft Extremity: Normal Inspection, Non Tender, No Pedal Edema Neurologic/Psychiatric: Alert, Oriented x3, No Motor/Sensory Deficits, Normal Mood/Affect Skin: Normal Color, Warm/Dry Results/Procedures Lab Laboratory Tests 11/06/19 09:40 11/07/19 05:23 Patient resulted labs reviewed. Imaging: Reviewed Imaging Report Assessment/Plan Assessment and Plan Assess & Plan/Chief Complaint Acute pancreatic necrosis Recurrent pancreatitis Possible gastric outlet obstruction Recent hospitalization due to pancreatitis Presented with worsening nausea and vomiting Lipase elevated CT revealed pancreatic necrosis with possible gastric outlet obstruction Gen. surgery consulted, appreciate assistance Pain regimen ordered Antiemetics ordered Continue IV fluids Clear liquid diet Continue meropenem for possible infected necrosis May eventually require transfer for cystogastrostomy, common bile duct, and/or pancreatic duct stenting HTN HLD BPH Hold home meds DVT prophylaxis: Lovenox Diagnosis/Problems Diagnosis/Problems (1) Acute pancreatic necrosis Status: Acute Clinical Quality Measures DVT/VTE Risk/Contraindication: Risk Factor Score Per Nursin RFS Level Per Nursing on Admit: 3=High MARCOS KINNEY MD Nov 07, 2019 09:27
--- NOTE | 2019-11-07 09:52 | NUR ---
CM/SS visited with the patient to assess needs upon discharge. CM/SS worked with patient during the last hospitalization. The patient verbalized that he is starting to feel a little better today and has not had any vomiting today. He reports that at home he was feeling weak because he couldn't keep down any food. 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 Therefore, he stated he thinks he is better off here in the hospital because she can't help take care of him. Home Health: The patient is already in service with [facility]. He states that physical therapy only had a couple of times to work with him before he was admitted. He reports the is happy with their care. CM/SS will continue to follow and resume [facility]. Addendum: 11/07/19 at 1034 by [facility] CM/SS contacted Dionne from [facility] to notify that the patient was admitted. She verbalized understanding.
--- NOTE | 2019-11-07 13:15 | Progress Note ---
Subjective Date Seen by a Provider: Nov 07, 2019 Time Seen by a Provider: 10:00 Subjective/Events-last exam doing ok. no complaints. no abd pain. no nausea/vomiting. tolerating clears. Objective Exam Vital Signs Date Time Temp Pulse Resp B/P (MAP) Pulse Ox O2 Delivery O2 Flow Rate FiO2 11/07/19 12:00 37.1 70 18 157/74 (101) 98 Room Air 11/07/19 08:00 37.5 77 18 155/67 (96) 95 Room Air 11/07/19 08:00 Room Air 11/07/19 04:00 37.3 71 18 147/71 (96) 95 Room Air 11/07/19 00:00 38.1 76 18 157/71 (99) 94 Room Air 11/06/19 20:00 Room Air 11/06/19 20:00 37.8 72 18 156/61 (92) 94 Room Air 11/06/19 17:37 Room Air 11/06/19 15:54 37.5 70 18 160/68 (98) 98 Room Air 11/06/19 13:47 37.0 88 18 119/58 93 Room Air I & O 11/07/19 07:00 Intake Total 1030 ml Balance 1030 ml Capillary Refill : NONE General Appearance: No Apparent Distress HEENT: PERRL/EOMI Neck: Full Range of Motion Respiratory: Chest Non Tender, Lungs Clear, Normal Breath Sounds Cardiovascular: Regular Rate, Rhythm Gastrointestinal: normal bowel sounds, non tender, soft Extremity: Normal Capillary Refill Neurologic/Psychiatric: Alert, Oriented x3 Skin: Normal Color Lymphatic: No Adenopathy Results Lab Laboratory Tests 11/07/19 05:23: White Blood Count 12.1H, Red Blood Count 4.04L, Hemoglobin 11.0L, Hematocrit 34L , Mean Corpuscular Volume 84, Mean Corpuscular Hemoglobin 27, Mean Corpuscular Hemoglobin Concent 32, Red Cell Distribution Width 14.4, Platelet Count 358, Mean Platelet Volume 10.7H, Neutrophils (%) (Auto) 80H, Lymphocytes (%) (Auto) 7L, Monocytes (%) (Auto) 13H, Eosinophils (%) (Auto) 1, Basophils (%) (Auto) 0, Neutrophils # (Auto) 9.6H, Lymphocytes # (Auto) 0.9L, Monocytes # (Auto) 1.5H, Eosinophils # (Auto) 0.1, Basophils # (Auto) 0.0, Neutrophils % (Manual) 75, Lymphocytes % (Manual) 7, Monocytes % (Manual) 9, Basophils % (Manual) 1, Band Neutrophils 8, Sodium Level 138, Potassium Level 4.1, Chloride Level 105, Carbon Dioxide Level 23, Anion Gap 10, Blood Urea Nitrogen 14, Creatinine 0.83, Estimat Glomerular Filtration Rate > 60, BUN/Creatinine Ratio 17, Glucose Level 135H, Calcium Level 7.9L, Corrected Calcium 8.9, Magnesium Level 1.9, Total Bilirubin 1.5H, Aspartate Amino Transf (AST/SGOT) 55H, Alanine Aminotransferase (ALT/SGPT) 42, Alkaline Phosphatase 202H, Total Protein 5.6L, Albumin 2.7L Assessment/Plan Assessment/Plan Assess & Plan/Chief Complaint pancreatitis and pancreatic necrosis. continue bowel rest and monitory of LFT's and pancreatic enzymes. Clinical Quality Measures DVT/VTE Risk/Contraindication: Risk Factor Score Per Nursin RFS Level Per Nursing on Admit: 3=High NOEL BRADSHAW MD Nov 07, 2019 13:15
[2019-11-07] MEDS: D5 1/2 NS W/KCL 20 MEQ/L 1,000 ML IV SCH ×2 (14:19→21:09)
[2019-11-07] MEDS: ENOXAPARIN 40 MG/0.4 ML (LOVENOX) SYR SC SCH (14:19)
[2019-11-07] MEDS: fentaNYL INJECTION 100 MCG/2 ML AMP IV PRN (21:10)
[2019-11-08] MEDS: fentaNYL INJECTION 100 MCG/2 ML AMP IV PRN (02:13)
[2019-11-08 04:40] VITALS: BP 125/66
[2019-11-08] MEDS: MEROPENEM 500 MG/SWFI 10 ML IV PUSH IV SCH ×4 (05:56→11:57)
[2019-11-08 06:30] LABS: BASOPHILS % (AUTO) 0 % (0-10); EOSINOPHILS # (AUTO) 0.1 10^3/uL (0.0-0.3); EOSINOPHILS % (AUTO) 1 % (0-10); HEMATOCRIT 36 % (40-54); HEMOGLOBIN 11.3 G/DL (13.3-17.7); LYMPHOCYTES % (AUTO) 10 % (12-44); MEAN CORPUSCULAR HEMOGLOBIN 27 PG (25-34); MEAN CORPUSCULAR HGB CONC 32 G/DL (32-36); MEAN CORPUSCULAR VOLUME 85 FL (80-99); MEAN PLATELET VOLUME 10.7 FL (7.4-10.4); MONOCYTES # (AUTO) 1.3 X 10^3 (0.0-1.0); MONOCYTES % (AUTO) 13 % (0-12); NEUTROPHILS % (AUTO) 77 % (42-75); PLATELET COUNT 320 10^3/uL (130-400); RED CELL DISTRIBUTION WIDTH 14.1 % (10.0-14.5); WHITE BLOOD COUNT 10.5 10^3/uL (4.3-11.0)
[2019-11-08] MEDS: D5 1/2 NS W/KCL 20 MEQ/L 1,000 ML IV SCH (06:42)
[2019-11-08 06:53] LABS: ALANINE AMINOTRANSFERASE 52 U/L (0-55); ALBUMIN 2.9 GM/DL (3.2-4.5); ALKALINE PHOSPHATASE 253 U/L (40-136); BILIRUBIN,TOTAL 1.7 MG/DL (0.1-1.0); BUN/CREATININE RATIO 10; CALCIUM 8.1 MG/DL (8.5-10.1); CARBON DIOXIDE 25 MMOL/L (21-32); CHLORIDE 104 MMOL/L (98-107); CREATININE SERUM 0.81 MG/DL (0.60-1.30); GFR ESTIMATED > 60; GLUCOSE 125 MG/DL (70-105); POTASSIUM 4.3 MMOL/L (3.6-5.0); SODIUM 138 MMOL/L (135-145); TOTAL PROTEIN 5.7 GM/DL (6.4-8.2)
[2019-11-08 07:56] VITALS: BP 154/70
[2019-11-08] MEDS: FAMOTIDINE 20MG/2ML IV (PEPCID) IV SCH (08:06)
--- NOTE | 2019-11-08 11:14 | Physician Query Clarification ---
"Physician Query-General Query to Physician: The medical record reflects the following clinical scenario: History/Risk factors: Recurrent bouts of Pancreatitis, Recent N/V Clinical Findings: 5 Kg wt loss from previous admission, Protein 5.6 Albumin is 2.7 Treatment: IV antiemetics and CLD as much as he can tolerate Question: What condition best reflects the above clinical scenario? Please document response in the Progress notes or Discharge Summary. 1. Severe protein/calorie malnutrition 2. Moderate protein/calorie malnutrition. 3. Nausea/Vomiting (As currently documented). 4. Other , with explanation of the clinical findings 5. Clinically undetermined, no explanation for the clinical findings Please remember a lack of response to the above will prompt a phone page by CDI/coding staff In responding to this query, please exercise your independent professional judgment. The purpose of this communication is to more accurately reflect the complexity of your patients condition. The fact that a question is asked does not imply that any particular answer is desired or expected. Thank you for timely response to this clarification. Aracely Reveles, MSN, RN RN Specialist-Clinical Doc Improvement CD -Health Info [facility] [address] [facility] t: [phone] | f: [phone] If you are unable to reach me at my extension, I may be working from home. Please contact me at [phone] PHYSICIAN RESPONSE: Based on the clinical findings in the record, please respond to the query above on this document as an addendum. Physician Response: Physician Response 2 moderate If you have questions please contact: Sport Shoe Spike Assembler: Ext: Thank you for your time and cooperation. Clinical Top Knitter/Sport Shoe Spike Assembler This is a permanent part of the medical record ARACELY REVELES November 08, 2019 11:14 MARCOS KINNEY MD November 08, 2019 18:09"
--- NOTE | 2019-11-08 11:57 | NUR ---
YULI/SS follow up. Plan: The patient will transfer to [place]. CM/SS contacted the patients son to inform him about the patients home health and instructions for resumption of care. He verbalized and wanted this ss to check into getting home health for his mother as well. CM/SS contacted the patients Niece to see who the primary care physician is. Awaiting a call back. YULI/SS informed the patients son that this ss may not be able to help set it up and discussed private care givers. He verbalized understanding. The patient stated he is "ready to get this over with" regarding his sickness. He reports that he hopes he will be able to return home soon due to his 's condition. CM/SS informed the patient that he will need to let the hospital know he has home health for a resumption of care. He verbalized understanding. No other questions at this time.
[2019-11-08 12:00] VITALS: BP 154/73
--- NOTE | 2019-11-08 12:02 | Progress Note ---
Subjective Date Seen by a Provider: November 08, 2019 Time Seen by a Provider: 11:00 Subjective/Events-last exam physically doing well however slight increase total bili. 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 Objective Exam Vital Signs Date Time Temp Pulse Resp B/P (MAP) Pulse Ox O2 Delivery O2 Flow Rate FiO2 11/08/19 09:31 96 Room Air 11/08/19 08:00 96 Room Air 11/08/19 07:56 37.1 71 18 154/70 (98) 96 Room Air 11/08/19 04:40 37.1 70 16 125/66 (85) 96 Room Air 11/07/19 23:55 37.2 69 16 155/73 (100) 97 Room Air 11/07/19 20:15 37.2 65 20 160/72 (101) 97 Room Air 11/07/19 20:15 Room Air 11/07/19 16:00 37.3 69 18 138/66 (90) 97 Room Air 11/07/19 12:00 37.1 70 18 157/74 (101) 98 Room Air I & O 11/08/19 07:00 Intake Total 2570 ml Output Total 300 ml Balance 2270 ml Capillary Refill : Less Than 3 SecondsLess Than 3 Seconds General Appearance: No Apparent Distress HEENT: PERRL/EOMI Neck: Full Range of Motion Respiratory: Chest Non Tender, Lungs Clear Cardiovascular: Regular Rate, Rhythm Gastrointestinal: normal bowel sounds, non tender, soft Extremity: Normal Capillary Refill Neurologic/Psychiatric: Alert, Oriented x3 Skin: Normal Color Lymphatic: No Adenopathy Results Lab Laboratory Tests 11/08/19 05:58: White Blood Count 10.5, Red Blood Count 4.23L, Hemoglobin 11.3L, Hematocrit 36L, Mean Corpuscular Volume 85, Mean Corpuscular Hemoglobin 27, Mean Corpuscular Hemoglobin Concent 32, Red Cell Distribution Width 14.1, Platelet Count 320, Mean Platelet Volume 10.7H, Neutrophils (%) (Auto) 77H, Lymphocytes (%) (Auto) 10L, Monocytes (%) (Auto) 13H, Eosinophils (%) (Auto) 1, Basophils (%) (Auto) 0, Neutrophils # (Auto) 8.0H, Lymphocytes # (Auto) 1.0, Monocytes # (Auto) 1.3H, Eosinophils # (Auto) 0.1, Basophils # (Auto) 0.0, Sodium Level 138, Potassium Level 4.3, Chloride Level 104, Carbon Dioxide Level 25, Anion Gap 9, Blood Urea Nitrogen 8, Creatinine 0.81, Estimat Glomerular Filtration Rate > 60, BUN/Creatinine Ratio 10, Glucose Level 125H, Calcium Level 8.1L, Corrected Calcium 9.0, Total Bilirubin 1.7H, Aspartate Amino Transf (AST/SGOT) 75H, Alanine Aminotransferase (ALT/SGPT) 52, Alkaline Phosphatase 253H, Total Protein 5.7L, Albumin 2.9L, Lipase 219H Assessment/Plan Assessment/Plan Assess & Plan/Chief Complaint pancreatitis and pancreatic necrosis. slight worsening total bili. mass effect likely worsening. patient will be transferred to [facility] specialists where stents can be placed. Clinical Quality Measures DVT/VTE Risk/Contraindication: Risk Factor Score Per Nursin RFS Level Per Nursing on Admit: 3=High NOEL BRADSHAW MD November 08, 2019 12:02
--- NOTE | 2019-11-08 14:13 | Discharge Summary ---
Discharge Summary Hospital Course Was the Problem List Reviewed?: Yes Problems/Dx: (1) Acute pancreatic necrosis Status: Acute Hospital Course Date of Admission: Nov 06, 2019 at 12:08 Admission Diagnosis : Acute pancreatic necrosis Family Physician/Provider: Carleen Arcos DO Date of Discharge: 11/08/19 Discharge Diagnosis: Acute pancreatic necrosis, possible gastric outlet obstruction, possible common bile duct and pancreatic duct obstruction Hospital Course: Rishi Anderson is an 88-year-old male with past medical history of hypertension, hyperlipidemia, BPH, who was hospitalized with acute pancreatitis 2 weeks ago and returned with worsening nausea and vomiting. Repeat CT scan revealed acute pancreatic necrosis with a large fluid collection possibly causing a gastric outlet obstruction, common bile duct obstruction, and/or pancreatic duct obstruction. His nausea and vomiting resolved with clear liquid diet but returned when his diet was advanced. His LFTs slowly trended upward. His lipase decreased slightly. Due to his nausea and vomiting as well as his liver enzymes trending upward, he was transferred to [facility] for gastroenterology evaluation and possible endoscopic intervention. The plan was discussed with both the patient and his son who were in agreement with the plan. Labs and Pending Lab Test: Laboratory Tests 11/08/19 05:58: White Blood Count 10.5, Red Blood Count 4.23L, Hemoglobin 11.3L, Hematocrit 36L, Mean Corpuscular Volume 85, Mean Corpuscular Hemoglobin 27, Mean Corpuscular Hemoglobin Concent 32, Red Cell Distribution Width 14.1, Platelet Count 320, Mean Platelet Volume 10.7H, Neutrophils (%) (Auto) 77H, Lymphocytes (%) (Auto) 10L, Monocytes (%) (Auto) 13H, Eosinophils (%) (Auto) 1, Basophils (%) (Auto) 0, Neutrophils # (Auto) 8.0H, Lymphocytes # (Auto) 1.0, Monocytes # (Auto) 1.3H, Eosinophils # (Auto) 0.1, Basophils # (Auto) 0.0, Sodium Level 138, Potassium Level 4.3, Chloride Level 104, Carbon Dioxide Level 25, Anion Gap 9, Blood Urea Nitrogen 8, Creatinine 0.81, Estimat Glomerular Filtration Rate > 60, BUN/Creatinine Ratio 10, Glucose Level 125H, Calcium Level 8.1L, Corrected Calcium 9.0, Total Bilirubin 1.7H, Aspartate Amino Transf (AST/SGOT) 75H, Alanine Aminotransferase (ALT/SGPT) 52, Alkaline Phosphatase 253H, Total Protein 5.7L, Albumin 2.9L, Lipase 219H Home Meds Active Reported Citalopram HBr (Citalopram Hydrobromide) 10 Mg Tablet 10 Mg PO DAILY Aspirin EC (Aspirin) 81 Mg Tablet.dr 81 Mg PO DAILY Flomax (Tamsulosin HCl) 0.4 Mg Cap 0.4 Mg PO DAILY Amlodipine Besylate 10 Mg Tablet 10 Mg PO DAILY Lisinopril 20 Mg Tablet 20 Mg PO DAILY Assessment/Pt Instructions You're being transferred to [facility] for gastroenterology evaluation and possible endoscopic intervention for your pancreatic necrosis/cyst. Discharge Planning: <30 minutes discharge planning Discharge Instructions Discharge Diet: No Restrictions Activity as Tolerated: Yes Consultations General surgery Discharge Physical Examination Vital Signs Vital Signs Date Time Temp Pulse Resp B/P (MAP) Pulse Ox O2 Delivery O2 Flow Rate FiO2 11/08/19 12:00 37.3 68 18 154/73 (100) 97 Room Air General Appearance: No Apparent Distress, WD/WN Respiratory: Lungs Clear, Normal Breath Sounds, No Respiratory Distress Cardiovascular: Regular Rate, Rhythm, No Edema, No Murmur Gastrointestinal: Normal Bowel Sounds, Soft, Tenderness (Left-sided/epigastric) Extremity: Normal Inspection, Non Tender, No Pedal Edema Skin: Normal Color, Warm/Dry Neurologic/Psychiatric: Alert, Oriented x3, No Motor/Sensory Deficits, Normal Mood/Affect Allergies: Coded Allergies: No Known Drug Allergies (Unverified , 07/30/14) Copy Copies To 1: CARLEEN ARCOS DO Discharge Summary Date of Admission Nov 06, 2019 at 12:08 Date of Discharge Discharge Date: November 08, 2019 Discharge Time: 14:13 Admission Diagnosis Acute pancreatic necrosis Consults/Procedures Consulations General surgery Discharge Diagnosis Acute pancreatic necrosis, Possible gastric outlet obstruction, possible common bile duct and pancreatic duct obstruction (1) Acute pancreatic necrosis Status: Acute Clinical Quality Measures DVT/VTE Risk/Contraindication: Risk Factor Score Per Nursin RFS Level Per Nursing on Admit: 3=High MARCOS KINNEY MD November 08, 2019 14:12
--- NOTE | 2019-11-08 14:45 | NUR ---
REPORT GIVEN TO SANDRA VALLECILLO AT . SON'S NUMBER GIVEN FOR CONTACT. SON'S NAME IS ROMY. TRANSFER TO [facility] # [id number]
--- NOTE | 2019-11-08 15:19 | NUR ---
EMS TO TRANSFER NOW.
== END 2019-11-08 13:00 | disposition short-term general hospital (02) | DRG 438 ==
LOC: EDUNIT# 09:22 → ER 09:23 → 4TH 12:08
PROVIDERS: ADMIT Internal Medicine; ATTEND Internal Medicine
DX: K85.92 Acute pancreatitis with infected necrosis, unspecified (principal); K31.1 Adult hypertrophic pyloric stenosis; K83.1 Obstruction of bile duct; K86.89 Other specified diseases of pancreas; E44.0 Moderate protein-calorie malnutrition; I10 Essential (primary) hypertension; E78.5 Hyperlipidemia, unspecified; N40.0 Benign prostatic hyperplasia without lower urinary tract symptoms; M19.91 Primary osteoarthritis, unspecified site; Z85.46 Personal history of malignant neoplasm of prostate; Z92.3 Personal history of irradiation; Z86.010 Personal history of colon polyps; Z97.4 Presence of external hearing-aid
CPT/HCPCS: 36415; 74177; 80053; 81000; 83690; 83735; 85007; 85025; 85027; 86141

== ENCOUNTER → 2020-04-06 | Outpatient (CLI) | payer MEDICARE ==
[~2020-04-06] MED LIST changes: +ASPI-1238 PO; -ASPI-983 PO
--- NOTE | 2020-04-06 15:29 | Diagnostic Imaging Report ---
INDICATION: Biliary stent evaluation. EXAMINATION: KUB at 2:57 PM. FINDINGS: The gallbladder appears to be surgically absent. The biliary stent is not visible. 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 IMPRESSION: The biliary stent appears to have been dislodged. Dictated by: Dictated on workstation # [id number]
== END ==
LOC: RAD 14:41
PROVIDERS: ATTEND Nurse Practitioner Adult Health
DX: Z45.89 Encounter for adjustment and management of other implanted devices (principal); Z96.89 Presence of other specified functional implants; Z98.890 Other specified postprocedural states
CPT/HCPCS: 74018

== ENCOUNTER 2021-12-24 16:35 | Emergency (ER) | payer MEDICARE ==
[~2021-12-24] VITALS: Ht 173 cm; Wt 75.0 kg
[~2021-12-24 16:35] MED LIST changes: +AMLO-251 PO; -AMLO10TA7 PO; -CITA10TA7 PO; +CITA10TA9 PO; -LISI-552 PO; +LISI20TA26 PO
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
[2021-12-24 18:39] LABS: BASOPHILS # (AUTO) 0.1 10^3/uL (0.0-0.1); BASOPHILS % (AUTO) 0 % (0-10); EOSINOPHILS % (AUTO) 0 % (0-10); HEMATOCRIT 41 % (40-54); HEMOGLOBIN 13.1 g/dL (13.3-17.7); LYMPHOCYTES # (AUTO) 1.5 10^3/uL (1.0-4.0); LYMPHOCYTES % (AUTO) 12 % (12-44); MEAN CORPUSCULAR HEMOGLOBIN 26 pg (25-34); MEAN CORPUSCULAR HGB CONC 32 g/dL (32-36); MEAN CORPUSCULAR VOLUME 83 fL (80-99); MEAN PLATELET VOLUME 11.4 fL (9.0-12.2); MONOCYTES # (AUTO) 1.3 10^3/uL (0.0-1.0); MONOCYTES % (AUTO) 10 % (0-12); NEUTROPHILS % (AUTO) 78 % (42-75); PLATELET COUNT 145 10^3/uL (130-400); WHITE BLOOD COUNT 12.9 10^3/uL (4.3-11.0)
[2021-12-24 18:42] LABS: POTASSIUM 3.8 MMOL/L (3.6-5.0)
[2021-12-24 18:43] LABS: CALCIUM 9.2 MG/DL (8.5-10.1)
[2021-12-24] MEDS ORDERED: NS IV 500 ML 500 ML IV ONE (18:45)
[2021-12-24 18:47] LABS: BILIRUBIN,TOTAL 1.7 MG/DL (0.1-1.0)
[2021-12-24 18:48] LABS: CREATININE SERUM 1.52 MG/DL (0.60-1.30)
[2021-12-24 18:58] LABS: BILIRUBIN,URINE 1+ (NEGATIVE); CLARITY,URINE CLEAR; COLOR,URINE ORANGE; GLUCOSE, URINE (UA) NEGATIVE (NEGATIVE); KETONES,URINE TRACE (NEGATIVE); LEUKOCYTE ESTERASE ,URINE NEGATIVE (NEGATIVE); NITRITE,URINE NEGATIVE (NEGATIVE); PH,URINE 5.5 (5-9); PROTEIN,URINE 2+ (NEGATIVE)
--- NOTE | 2021-12-24 19:19 | Diagnostic Imaging Report ---
INDICATION: Fever, delirium. EXAMINATION: 2 view chest 12/24/2021 COMPARISON: 10/27/2019 FINDINGS: 3 views of the chest. The heart is unremarkable. There is atelectasis at the right lung base. No focal infiltrates. No effusions. No pneumothorax. IMPRESSION: 1. Minimal right base atelectasis. Otherwise negative chest. Dictated by: Dictated on workstation # [id number]
[2021-12-24] MEDS ORDERED: NS IV 1000 ML 1,000 ML IV SCH (19:30)
[2021-12-24 19:48] LABS: BACTERIA,URINE LARGE /HPF; HYALINE CASTS, URINE 25-50 /LPF; WBC,URINE 0-2 /HPF
[2021-12-24 21:09] VITALS: BP 143/54
== END 2021-12-24 21:14 | disposition home or self-care (01) ==
LOC: EDUNIT# 16:35 → ER 16:37
DX: R31.21 Asymptomatic microscopic hematuria (principal); R41.0 Disorientation, unspecified; R19.7 Diarrhea, unspecified; E86.0 Dehydration; Z20.822 Contact with and (suspected) exposure to COVID-19
CPT/HCPCS: 36415; 71046; 80053; 81000; 85025; 86141; 87040; 87088; 87636

== ENCOUNTER → 2022-10-20 | Outpatient (CLI) | payer MEDICARE ==
--- NOTE | 2022-10-20 15:06 | Diagnostic Imaging Report ---
PROCEDURE: MRI left upper extremity without contrast. TECHNIQUE: Multiplanar, multisequence non contrast-enhanced MRI of the left upper extremity was accomplished. INDICATION: Left shoulder pain, strain. COMPARISON: None. FINDINGS: There are post surgical changes in the left shoulder with a suture anchor seen in the humeral head. There is surrounding susceptibility artifact. No acute fracture is seen in the left shoulder. There is a small joint effusion. The supraspinatus tendon demonstrates severe tendinosis and there may be some low-grade partial tearing. The infraspinatus tendon demonstrates moderate tendinosis. The teres minor tendon is intact. The subscapularis tendon demonstrates mild tendinosis and low-grade partial tearing. There is moderate fluid in the subacromial/subdeltoid bursa which could be secondary to prior capsule disruption. The long head of the biceps tendon is torn or subject to prior tenodesis at the bicipital groove. The glenoid labrum is suboptimally evaluated in the absence of intra-articular contrast. There does appear to be some degeneration of the labrum, particularly superiorly. No paralabral cyst is seen. The acromion has a curved undersurface. The coracoclavicular and coracoacromial ligaments are intact. There is moderate to severe degenerative change in the acromioclavicular joint. IMPRESSION: 1. Post operative changes in the left shoulder. Fluid in the subacromial/subdeltoid bursa may be secondary to post surgical change versus bursitis. 2. Marked tendinosis with small low-grade partial tears in the left rotator cuff. No muscular atrophy. 3. Complete tear versus prior tenodesis of the long head of the biceps tendon. 4. Small left shoulder joint effusion. Dictated by: Dictated on workstation # [id number]
== END ==
LOC: RAD 13:12
PROVIDERS: ATTEND Registered Nurse Critical Care Medicine
DX: M75.112 Incomplete rotator cuff tear or rupture of left shoulder, not specified as traumatic (principal); S46.112A Strain of muscle, fascia and tendon of long head of biceps, left arm, initial encounter; I10 Essential (primary) hypertension; M79.645 Pain in left finger(s); X58.XXXA Exposure to other specified factors, initial encounter; Z98.890 Other specified postprocedural states
CPT/HCPCS: 73221